=== PATIENT | female | born 1985 | race Caucasian/White ===

== ENCOUNTER 2019-09-03 18:58 | Emergency (ER) | payer BC, SELFPAY ==
[2019-09-03 19:14] VITALS: BP 136/96; PULSE 97; RESP 18; TEMP 36.7; O2SAT 100
[2019-09-03 20:45] LABS: Add Urine Microscopic? NO; Appearance Urine Clear (Clear); Bilirubin Urine Negative (Negative); Blood Urine Negative (Negative); Color Urine Yellow (Yellow); Glucose Urine UA Negative (Negative); Ketones Urine Negative (Negative); Leukocyte Esterase Ur Negative LEU/UL (Negative); Nitrate Urine Negative (Negative); Protein Urine Negative (Negative); Specific Grav Ur 1.018 (1.001-1.035); Urobilinogen Urine Negative mg/dL (<2.0)
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
[2019-09-03] MEDS: CLINDAMYCIN HCL 150 MG CAP 300 MG PO (21:37)
== END 2019-09-03 21:40 | disposition home or self-care (01) ==
PROVIDERS: Emergency Provider Emergency Medicine; PCP Emergency Medicine
DX: J02.9 Acute pharyngitis, unspecified (principal); N76.0 Acute vaginitis; F17.210 Nicotine dependence, cigarettes, uncomplicated
CPT/HCPCS: 81003; 81025; 87070; 87077; 87081; 87491; 87591; 87808; 87880; 99284; A9270

== ENCOUNTER 2020-04-11 13:47 | Outpatient (CLI) | payer BC, SELFPAY ==
--- NOTE | 2020-04-11 13:48 | ECG_ITS ---
Measurements Intervals Walker Rate: 89 P: 62 OH: 177 QRS: -9 QRSD: 92 T: 19 QT: 347 QTc: 422 Interpretive Statements SINUS RHYTHM POOR R WAVE PROGRESSION, ANTERIOR LEADS BASELINE ARTIFACT- I, III, AVR, AVL, AVF BORDERLINE ECG Electronically Signed On 04-11-2020 14:24:13 CDT by Chavo Burns D.O.
== END 2020-04-11 13:48 | disposition home or self-care (01) ==
LOC: ANHSURGERY 13:48
PROVIDERS: PCP Emergency Medicine; Visit Provider Obstetrics & Gynecology
DX: Z01.810 Encounter for preprocedural cardiovascular examination (principal); Z72.0 Tobacco use
CPT/HCPCS: 93005

== ENCOUNTER 2020-04-15 09:52 | Emergency (ER) | payer BC, SELFPAY ==
[2020-04-15 10:00] VITALS: BP 119/83; PULSE 83; RESP 16; TEMP 36.4; O2SAT 99
[2020-04-15 10:05] VITALS: BP 119/83; PULSE 83; RESP 16; TEMP 36.4; O2SAT 99
--- NOTE | 2020-04-15 10:09 | ED.EXTPRO ---
HPI - Extremity Problem General Chief complaint: Extremity Injury, Upper Stated complaint: left shoulder pain Time Seen by Provider: 04/15/20 10:10 Source: patient and RN notes reviewed Mode of arrival: ambulatory Limitations: no limitations History of Present Illness HPI Narrative: 35-year-old female presents with concern for left posterior shoulder pain. Reports symptoms started yesterday. Reports the day before that she was putting in a wooden fence and lifting heavy items. She denies any direct trauma, injury. Denies neck pain, arm pain, chest pain. Denies abdominal pain, nausea, vomiting. Reports using ibuprofen and heat. MD Complaint: other (shoulder pain) Related Data Allergies Allergy/AdvReac Type Severity Reaction Status Date / Time metronidazole [From Metrogel] Allergy Mild REDNESS, Verified 04/15/20 10:05 IRRITATION Review of Systems Review of Systems: Narrative: CONSTITUTIONAL: Denies malaise, chills, sweats, or fever. CARDIOVASCULAR: Denies chest pain, palpitations RESPIRATORY: Denies cough or dyspnea. GASTROINTESTINAL: Denies abdominal pain, nausea, vomiting SKIN: Denies bruising, redness MUSCULOSKELETAL: Reports left posterior shoulder pain NEUROLOGIC: Denies numbness, weakness All systems reviewed & are unremarkable except as noted in HPI and below PMFSH Past Medical History Medical History (Updated 04/15/20 @ 10:23 by Bronwyn Rosas NP) Chlamydia Hemorrhoids Ovarian cyst Spontaneous Surgical History Surgical History (Updated 06/14/19 @ 22:04 by Kortney Moreira) H/O dilation and curettage x2 H/O laparoscopy Hx of section Social History Social History Smoking packs per day: 1 Smoking cigarettes per day: 20.0 Years smoked: 20 Smoking pack-years: 20.00 Smoking status: Current every day smoker Tobacco type: cigarettes Second hand tobacco smoke exposure: Yes Alcohol intake: never Gender identity (if verbalized by the patient): Female Spiritual care concerns: No Comments At time of signature, agree with nursing past medical, surgical, social and family history. There is no relevant family history pertinent to the presenting complaint Exam Narrative: Exam Narrative: GENERAL: Well-appearing, well-nourished, and in no acute distress. HEAD: Normocephalic, atraumatic. EYES: PERRLA, conjunctivae clear ENT: Mucous membranes moist. NECK: Supple. CHEST: No respiratory distress. Clear to auscultation. No bony deformities, no asymmetry. Speaks in full sentences. HEART: Regular rate and rhythm. No murmur heard. EXTREMITIES: Bilateral upper extremities have grossly normal range of motion, grossly normal strength and sensation. SKIN: Warm, dry, no rash. No erythema, edema noted NEURO: Alert and oriented x3. PSYCH: Normal mood and affect Course Course Emergency Course: Patient is aware of diagnosis, understands and agrees to treatment plan. Anticipatory guidance given. Patient agrees to follow-up as directed and is aware of reasons to seek care at the emergency department. Portions of this record may have been created with voice recognition software Vital Signs Vital signs: Vital Signs Temperature 97.6 F 04/15/20 10:00 Pulse Rate 83 04/15/20 10:00 Respiratory Rate 16 04/15/20 10:00 Blood Pressure 119/83 04/15/20 10:00 Pulse Oximetry 99 04/15/20 10:00 Temperature 97.6 F 04/15/20 10:05 Pulse Rate 83 04/15/20 10:05 Respiratory Rate 16 04/15/20 10:05 Blood Pressure 119/83 04/15/20 10:05 Pulse Oximetry 99 04/15/20 10:05 Reviewed. MDM - Extremity (Nontraumatic) MDM Narrative Medical decision making narrative: Patients pain is consistent with musculoskeletal etiology. No signs of neurological or vascular compromise on exam. Compartments and tissues are soft without signs of compartment syndrome. Pain is felt appropriate for further evaluation on an outpatient
== END 2020-04-15 10:30 | disposition home or self-care (01) ==
PROVIDERS: Emergency Provider Nurse Practitioner; PCP Emergency Medicine
DX: S46.912A Strain of unspecified muscle, fascia and tendon at shoulder and upper arm level, left arm, initial encounter (principal); X50.0XXA Overexertion from strenuous movement or load, initial encounter; F17.210 Nicotine dependence, cigarettes, uncomplicated
CPT/HCPCS: 99213; G0463

== ENCOUNTER 2020-04-22 01:28 | Outpatient (CLI) | payer BC, SELFPAY ==
[2020-04-22 17:41] LABS: SARS-CoV-2 RNA PCR Negative
== END 2020-04-22 01:29 | disposition home or self-care (01) ==
LOC: ANHCOVIDDT 01:28
PROVIDERS: PCP Emergency Medicine; Visit Provider Obstetrics & Gynecology
DX: Z01.812 Encounter for preprocedural laboratory examination (principal); Z20.828 Contact with and (suspected) exposure to other viral communicable diseases
CPT/HCPCS: 87635; C9803; U0003

== ENCOUNTER 2020-04-24 03:07 | Day surgery (SDC) | payer BC, SELFPAY ==
[2020-04-10 15:39] VITALS: BMI 34.0
[2020-04-24] VITALS (9 sets, daily range): BP systolic 103–136; BP diastolic 70–85; PULSE 64–99; RESP 12–18; TEMP 36.1–36.4; O2SAT 96–100; BMI 33.9
--- NOTE | 2020-04-24 08:57 | PM.IMHP ---
H&P: HPI History of Present Illness Date/Time: 04/24/20 08:57 Chief complaint: desires sterilization and heavy bleeding Narrative: 35 y/o who desires permanent contraception. Also she has monthly menses lasting 6-7 days each with heavy flow. She is interested in surgical management of her problem. Review of Systems Review of Systems: All systems reviewed & are unremarkable except as noted in HPI and below PMFSH Past Medical History Medical History (Updated 04/24/20 @ 09:00 by Larry Zaman MD) Chlamydia Hemorrhoids Ovarian cyst Spontaneous Surgical History Surgical History H/O dilation and curettage x2 H/O laparoscopy Hx of section Social History Social History Smoking packs per day: 1 Smoking cigarettes per day: 20.0 Years smoked: 20 Smoking pack-years: 20.00 Smoking status: Current every day smoker Tobacco type: cigarettes Second hand tobacco smoke exposure: Yes Alcohol intake: never Gender identity (if verbalized by the patient): Female Spiritual care concerns: No Meds Home Medications and Allergies Home Medications Medication Instructions Recorded Confirmed Type cyclobenzaprine 10 mg PO TID PRN #20 tablet 04/15/20 Rx ibuprofen 800 mg PO Q6H PRN #30 tablet 04/15/20 Rx Allergies Allergy/AdvReac Type Severity Reaction Status Date / Time metronidazole [From Metrogel] Allergy Mild REDNESS, Verified 04/15/20 10:05 IRRITATION Exam Const: Orientation/consciousness: patient oriented x3 Other: Well-developed, well-nourished female in no acute distress. Neck: Thyroid: thyroid normal Lymphatic: no lymphadenopathy noted (in neck, axilla or inguinal nodes) Resp: Effort & Inspection: normal respiratory effort Auscultation: clear to auscultation bilaterally Cardio: Rate: regular rate Rhythm: regular rhythm Heart sounds: S1 normal heart sound present and S2 normal heart sound present GI: Other: ABD: Soft, nontender, nondistended. No guarding or rebound tenderness. No hepatosplenomegaly. : General: Yes no CVA tenderness Other: External genitalia: normal female hair distribution, without lesion. Urethral meatus: no lesion, non prolapsed. Bladder: no mass, nontender Vagina: well-estrogenized, without lesion or discharge. No cystocele or rectocele. Cervix: no lesion or discharge. Uterus: small, anteverted, freely mobile, nontender Adnexa: no mass or tenderness. Anus/perineum: no lesions, nontender Back/Spine/Pelvis: Back: no CVA tenderness Skin: General skin exam: normal color and no rashes or lesions noted Neuro: General: patient oriented x3 Extrem: Other: Extremities: nontender with no edema Psych: Mental Status: mental status grossly normal Affect: normal affect Assessment and Plan Assessment and plan (1) Menometrorrhagia: Code(s): N92.1 - Excessive and frequent menstruation with irregular cycle Status: Acute Assessment and Plan: We have reviewed medical management options as well as surgical options. She would like laparoscopic bilateral tubal ligation with hysteroscopy, D&C, endometrial ablation. She understands there are temporary methods of contraception available to her. She understands that there are nonsurgical options as well as surgical options. She understands that tubal ligation will render her permanently sterile. She understands that there is a failure rate associated with tubal ligation, as well as an inherent ectopic gestation risk. Furthermore, she understands risks of surgery to include risks of anesthesia, risks of pain, infection, bleeding, blood products, thromboembolic phenomena and damage to adjacent structures such as bowel, bladder, ureters, blood vessels and nerves. She understands all these risks and elects to proceed with surgery. She has received the ACOG pamphlet on
[2020-04-24] MEDS: ACETAMINOPHEN 500 MG TABLET 1000 MG PO (11:34)
[2020-04-24] MEDS: KETOROLAC 15 MG/ML VIAL (*BKC) IV PUSH (11:42)
[2020-04-24] MEDS: LACTATED RINGERS 1,000 ML 30 ML IV CONT ×2 (11:42→13:57)
--- NOTE | 2020-04-24 12:09 | WPDHPUPDATE1 ---
History and Physical Update Update Date/Time: 04/24/20 12:09 History and Physical has been reviewed, including an updated exam of the patient. There are NO changes in the patient's condition. Risks, benefits, and alternatives have been discussed and questions answered. Patient agrees to proceed with procedure.
--- NOTE | 2020-04-24 12:30 | WPDANESEPPF ---
Anes - Initial Pre Proc Eval Procedure: Operation Date: 04/24/20 12:45 Proposed Procedures p Laparoscopic Bilateral Tubal Ligation With Fallopian Rings - Larry Zaman MD s Hysteroscopy, Dilation And Curettage, Novasure Endometrial Ablation - Larry Zaman MD Date/Time: 04/24/20 12:30 Surgeon: Larry Zaman MD Pre Op Diagnosis: desires sterilization and heavy bleeding Patient Data Age: 35 Gender: F Height: 5 ft 4 in Weight: 89.6 kg Last Vital Signs Temp 36.1 C L 04/24/20 11:30 Pulse 99 04/24/20 11:30 Resp 18 04/24/20 11:30 BP 127/76 04/24/20 11:30 Pulse Ox 100 04/24/20 11:30 Allergies Allergy/AdvReac Type Severity Reaction Status Date / Time metronidazole [From Metrogel] Allergy Mild REDNESS, Verified 04/24/20 11:25 IRRITATION Home Medications Medication Instructions Recorded Confirmed Type cyclobenzaprine 10 mg PO TID PRN #20 tablet 04/15/20 04/24/20 Rx ibuprofen 800 mg PO Q6H PRN #30 tablet 04/15/20 04/24/20 Rx Patient hx anesthesia problems: none Family hx anesthesia problems: none PMFSH Past Medical History Medical History Chlamydia Hemorrhoids Ovarian cyst Spontaneous Surgical History Surgical History H/O dilation and curettage x2 H/O laparoscopy Hx of section Social History Social History Smoking packs per day: 1 Smoking cigarettes per day: 20.0 Years smoked: 20 Smoking pack-years: 20.00 Smoking status: Current every day smoker Tobacco type: cigarettes Second hand tobacco smoke exposure: Yes Alcohol intake: never Gender identity (if verbalized by the patient): Female Spiritual care concerns: No Anes - Eval Final PreProcedure Day of Procedure 04/24/20 12:30 Patient weight: obese Heart: regular rate and rhythm Lungs: clear to auscultation Airway: Mallampati scale class II Neurological: alert and oriented Last oral intake: >/= 8 hours ASA classification: II Emergent: no Anesthetic plan: proceed Anesthesia type and monitoring: general ETT and standard monitoring Informed Consent: The patient's anesthetic plan and its attendant risks and benefits were discussed with the patient/family/POA. Questions were solicited and answers provided to the satisfaction of the patient/family/POA.
--- NOTE | 2020-04-24 13:44 | SUR.OPER ---
6 ML 1% LIDOCAINE INJECTED INTO FALLOPIAN TUBES BILATERALLY 10 ML 1% LIDOCAINE INJECTED INTO CERVIX
--- NOTE | 2020-04-24 13:59 | PM.PROC ---
Procedure Note - Detailed Date of procedure: 04/24/20 Pre-op diagnosis: desires sterilization and heavy bleeding Post-op diagnosis: same Procedure performed: Laparoscopic bilateral tubal ligation with Falope rings Hysteroscopy Dilation and sharp curettage Endometrial ablation Description of procedure: The patient was taken to the operating room where general endotracheal anesthesia was administered. She was prepared and draped in the usual sterile fashion in dorsal lithotomy position. The bladder was drained with a red rubber catheter. A sterile speculum was placed into the vagina. The anterior lip of the cervix was grasped with a single-tooth tenaculum. The acorn uterine manipulator was placed. The speculum was withdrawn. Gloves were changed and attention was turned the abdomen. An infraumbilical skin incision was made with a scalpel. The abdomen was tented and a 5mm bladeless trocar was advanced under direct laparoscopic visualization. Pneumoperitoneum was administered using carbon dioxide gas. A survey of the pelvis and abdomen revealed the findings noted above. A second skin incision was made in the midline above the symphysis pubis and an 8mm bladeless trocar was advanced under direct laparoscopic visualization. The fallopian tube on the right side was followed out to the fimbriated end for identification. It was then grasped in the midportion with the Falope ring applicator. The Falope ring was tented applied. A good loop of tube was noted to be distal to the ring. Hemostasis was excellent. The device was reloaded and the contralateral tube was similarly identified and ligated. An excellent application was noted here as well. A total of 1mL of 1% lidocaine was infiltrated into the serosa of the proximal tubes for postoperative anesthesia. The ports were withdrawn. The gas was allowed to escape. The skin incisions were reapproximated using interrupted subcuticular sutures of 4 0 Vicryl. Dermaflex was applied externally. Attention was redirected to the vagina. The acorn manipulator was withdrawn and the speculum reintroduced. The anterior lip of the cervix was grasped with single-tooth tenaculum. Ten mL of 1% lidocaine was administered in a paracervical block. The cervix was then gently dilated using Hegar dilators until an 8 mm dilator could be passed. Hysteroscopy was performed using sterile saline as a distention medium. Findings are as noted above. Sharp curettage was then performed, and endometrial curettings were collected on a Telfa pad and passed off to be sent to pathology. Finally, the the Codi device was advanced and endometrial ablation commenced without difficulty. The device was withdrawn and a second look was taken using the hysteroscope. Excellent coverage of the endometrial cavity was noted. The tenaculum was removed. Hemostasis was excellent. Sponge, lap, needle and instrument counts were correct. The patient was awakened and taken to the recovery room in stable condition. I was present and scrubbed through the entire procedure. Implants: Falope rings Anesthesia: GETA and local (1% lidocaine) Surgeon: Larry Zaman MD Estimated blood loss (mL): 5 Drains: No Packing: No Pathology: yes (endometrial curettings) Complications: None Condition: stable Disposition: PACU Findings: Normal appearing right upper quadrant anatomy, vermiform appendix, uterus, tubes, ovaries, anterior and posterior cul de sac, round ligaments bilaterally and uterosacral ligaments bilaterally. Endometrial cavity unremarkable. Both tubal ostia seen. The uterus sounded to a depth of 8.5 cm with a cervical length of 3 cm, giving a subtracted uterine cavity length of 5.5 cm.
[2020-04-24] MEDS: fentaNYL CITRATE INJ (*CRX) 100 MCG/2 ML VIAL 25 MCG IV PUSH ×8 (14:05→14:40)
[2020-04-24] MEDS: ONDANSETRON INJ 4 MG/2 ML VIAL IV PUSH (14:21)
[2020-04-24] MEDS: HYDROmorphone HCL INJ (*CRX) 1 MG/ML SYR 0.5 MG IV PUSH ×2 (14:43→14:58)
[2020-04-24] MEDS: oxyCODONE HCL (*CRX) 5 MG TAB IR PO (15:36)
== END 2020-04-24 16:03 | disposition home or self-care (01) ==
PROVIDERS: PCP Emergency Medicine; Visit Provider Obstetrics & Gynecology
PROC: (CPT 58671; principal; 2020-04-24 12:45)
PROC: 0U5B8ZZ Destruction of Endometrium, Via Natural or Artificial Opening Endoscopic (ICD-10-PCS; CPT 58563; 2020-04-24 12:45)
DX: Z30.2 Encounter for sterilization (principal); N92.1 Excessive and frequent menstruation with irregular cycle; F17.210 Nicotine dependence, cigarettes, uncomplicated; E66.9 Obesity, unspecified; Z68.33 Body mass index [BMI] 33.0-33.9, adult
CPT/HCPCS: 58563; 58671; 88305; A4264; A9270; J0330; J1100; J1170; J1885; J2250; J2405; J2704; J3010; J7030; J7120

== ENCOUNTER 2020-11-26 15:45 | Emergency (ER) | payer BC, SELFPAY ==
--- NOTE | ~2020-11-26 | CT_ITS ---
EXAMINATION: CT abdomen pelvis w con DATE: 11/26/2020 18:15 INDICATION: Right lower quadrant pain. Nausea and vomiting. TECHNIQUE: Computed tomography (CT) of the abdomen and pelvis was performed with 100 cc Omnipaque 350 intravenous contrast. The dose-length product was 965.34 mGy-cm. Automated exposure control and iter ative reconstruction technique were employed. COMPARISON: CT dated 06/14/2019. FINDINGS: Heart size is normal. No significant pleural or pericardial effusion. No significant vascul ar abnormality. No significant vascular abnormality. No lymphadenopathy. Fatty infiltration of the liver. The spleen, pancreas, adrenal glands are unremarkable. Gallbladder i s present. There are bilateral renal cysts. Normal appendix. No mesenteric lymphadenopathy. Nonobstru ctive bowel gas pattern. Small fat-containing umbilical hernia. No abnormal pelvic masses or fluid co llections. There are surgical changes consistent with previous tubal ligation. No significant bone or joint abnormality. IMPRESSION: 1. No acute abdominal abnormality. Reviewed, dictated and finalized at location A.
--- NOTE | ~2020-11-26 | US_ITS ---
EXAMINATION: US pelvic complete w TV DATE: 11/26/2020 19:58 INDICATION: Right pelvic pain Comparison:No prior studies for comparison. TECHNIQUE: Multiple transabdominal and endovaginal sonographic images of the pelvis performed. FINDINGS: The uterus measures 8.9 x 4.1 x 4.5 cm. The endometrial is heterogeneous. Endometrium is so mewhat heterogeneous with possible 1.3 cm endometrial mass. There are cysts in the lower uterine segm ent measuring up to 9 mm. The right ovary measures 3.4 x 2.9 x 2 cm and the left ovary measures 3.5 x 1.9 x 2.5 cm. There are small follicles in each ovary. Normal doppler signal in both ovaries. There is no free fluid in the pelvis. There are no abnormal masses seen on either side. IMPRESSION: 1. Thickened heterogeneous endometrium containing 1.3 cm mass which may represent an endometrial poly p, submucosal fibroid or less likely malignancy. Reviewed, dictated and finalized at location [facility]. IMPRESSION: 1. Thickened heterogeneous endometrium containing 1.3 cm mass which may represe nt an endometrial polyp, submucosal fibroid or less likely malignancy.
[2020-11-26 16:35] VITALS: BP 162/110; PULSE 90; RESP 22; TEMP 36.8; O2SAT 100
--- NOTE | 2020-11-26 16:37 | ED.NAVMDI ---
HPI - Nausea/Vomiting/Diarrhea General Chief complaint: Nausea/Vomiting/Diarrhea Stated complaint: R Lower Abd Pain Time Seen by Provider: 11/26/20 16:16 Source: patient Mode of arrival: ambulatory Limitations: no limitations History of Present Illness HPI Narrative: Patient is a 35 year old female who presents with complaints of lower abdominal pain x 4 days. She reports that initially RLQ pain which has increased over the past few days. She reports pain is 8/10 and now includes all of lower abdomen. She reports nausea starting today with vomiting x 1. She reports history of kidney stone and ovarian cyst but states it feels much different this time . She reports taking [place] yesterday without relief. She denies urinary complaints. She denies diarrhea, reports feeling of constipation. She denies all other complaints at this time. MD elicited complaint: nausea, vomiting and abdominal pain Related Data Allergies Allergy/AdvReac Type Severity Reaction Status Date / Time metronidazole [From Metrogel] Allergy Mild REDNESS, Verified 04/24/20 11:25 IRRITATION Review of Systems Review of Systems: Narrative: CONSTITUTIONAL: Denies fever, chills, or sweats. EYES: Denies visual changes, redness, or discharge. ENT: Denies rhinorrhea, congestion, sore throat, or otalgia. CARDIOVASCULAR: Denies chest pain, palpitations, or edema. RESPIRATORY: Denies cough or dyspnea. GASTROINTESTINAL: Reports lower abdominal pain, nausea and vomiting. GENITOURINARY: Denies dysuria or hematuria. SKIN: Denies rash or itching. MUSCULOSKELETAL: Denies back pain, joint pain, or myalgia. NEUROLOGIC: Denies headache, numbness, dizziness, or weakness. PSYCHIATRIC: Denies anxiety or depression. [facility], [facility] Past Medical History Medical History (Updated 11/26/20 @ 20:21 by ANUJ Pizano) Chlamydia Hemorrhoids Kidney stone Ovarian cyst Spontaneous Surgical History Surgical History (Updated 11/26/20 @ 16:41 by ANUJ Pizano) H/O dilation and curettage x2 H/O laparoscopy History of endometrial ablation Hx of section Social History Social History Smoking packs per day: 1 Smoking cigarettes per day: 20.0 Years smoked: 20 Smoking pack-years: 20.00 Smoking status: Current every day smoker Tobacco type: cigarettes Second hand tobacco smoke exposure: Yes Alcohol intake: never Gender identity (if verbalized by the patient): Female Spiritual care concerns: No Comments At the time of signature, I have reviewed and agree with nursing past medical, surgical, social, and family history unless otherwise noted. Please see nursing chart for further information. There is no relevant family history pertinent to the presenting complaint. Exam Narrative: Exam Narrative: GENERAL: Well-appearing, well-nourished, and in no acute distress. HEAD: Normocephalic, atraumatic. EYES: EOMI. No redness or drainage. Conjunctiva are normal. ENT: Mucous membranes pink and moist. CHEST: No respiratory distress. Clear to auscultation. HEART: Regular rate and rhythm. No murmur appreciated. Normal peripheral pulses. GI: Soft, tenderness with palpation, no rebound tenderness or guarding. No distention. Bowel sounds normal in all quadrants. MUSCULOSKELETAL: No bony tenderness. EXTREMITIES: Normal range of motion. No edema. SKIN: Warm, dry, no rash. NEURO: No focal deficits. Alert and oriented x3. Gait steady. PSYCH: Normal affect. No signs of depression or anxiety. Course Vital Signs Vital signs: Vital Signs Temperature 36.8 C 11/26/20 16:35 Pulse Rate 90 11/26/20 16:35 Respiratory Rate 22 H 11/26/20 16:35 Blood Pressure 162/110 H 11/26/20 16:35 Pulse Oximetry 100 11/26/20 16:35 Temperature 36.8 C 11/26/20 16:35 Pulse Rate 83 11/26/20 18:36 Respiratory Rate 17 11/26/20 18:36 Blood Pressure 117/69 11/26/20 18:36 Pulse Oximetry 99
[2020-11-26] MEDS: MORPHINE SULFATE (*CRX) 4 MG/ML INJ IV PUSH (17:04)
[2020-11-26] MEDS: SODIUM CHLORIDE 0.9% IV 1,000 ML 999 ML IV CONT (17:04)
[2020-11-26] MEDS: ONDANSETRON INJ 4 MG/2 ML VIAL IV PUSH ×2 (17:04→19:20)
[2020-11-26 17:16] LABS: Basophils Absolute Auto 0.1 K/mm3 (0.0-0.1); Basophils Percent Auto 0.9 % (0.2-1.2); Eosinophils Absolute Auto 0.4 K/mm3 (0-0.3); Eosinophils Percent Auto 3.1 % (0-4.4); Hemoglobin 15.6 g/dL (12.0-15.0); Immature Granulocyte Absolute 0.06 K/mm3 (0.00-0.031); Immature Granulocyte Percent A 0.5 % (0-0.5); Lymphocytes Absolute Auto 3.17 K/mm3 (0.9-3.2); Lymphocytes Percent Auto 26.7 % (18.3-44.2); Mean Corpuscular HGB Conc 33.9 g/dl (32-36); Mean Corpuscular Hemoglobin 30.6 pg (26-34); Mean Corpuscular Volume 90.2 fl (80-100); Mean Platelet Volume 9.4 fl (7.4-10.4); Monocytes Absolute Auto 0.7 K/mm3 (0.1-0.6); Monocytes Percent Auto 5.9 % (2.6-8.5); Neutrophils Absolute Auto 7.5 K/mm3 (1.3-6.7); Neutrophils Percent Auto 62.9 % (45.5-73.1); Platelet Count Result 390 k/mm3 (150-375); Red Cell Distribution Width 12.1 % (11.5-14.5); White Blood Count 11.9 K/mm3 (4.5-10.0)
[2020-11-26 17:35] LABS: Add Urine Microscopic? NO; Appearance Urine Clear (Clear); Bilirubin Urine Negative (Negative); Blood Urine Negative (Negative); Color Urine Yellow (Yellow); Glucose Urine UA Negative (Negative); Ketones Urine Negative (Negative); Leukocyte Esterase Ur Negative LEU/UL (Negative); Nitrate Urine Negative (Negative); Protein Urine Negative (Negative); Specific Grav Ur 1.027 (1.001-1.035); Urobilinogen Urine Negative mg/dL (<2.0)
[2020-11-26 17:50] LABS: Alanine Aminotransferase 32 U/L (4-35); Albumin Level 4.6 g/dL (3.5-5.1); Alkaline Phosphatase 105 U/L (38-126); Anion Gap 9 mmol/L (8-16); Aspartate Amino Transferase 34 U/L (14-36); Bilirubin,Total 0.5 mg/dL (0.2-1.3); Blood Urea Nitrogen 16 mg/dL (7-17); Calcium 9.3 mg/dL (8.4-10.2); Carbon Dioxide 26 mmol/L (22-30); Chloride 106 mmol/L (98-107); Estimated Glomerular Filt Rate > 60; Glucose 98 mg/dL (65-105); Lipase 37 U/L (23-300); Potassium 4.2 mmol/L (3.4-5.0); Sodium 141 mmol/L (137-145)
--- NOTE | 2020-11-26 18:00 | PC.NURSE ---
Pt ambulated steady gait to BR, states nausea has improved and no longer vomiting, reports 3/10 lower abd pain
[2020-11-26 18:36] VITALS: BP 117/69; PULSE 83; RESP 17; O2SAT 99
[2020-11-26] MEDS: KETOROLAC 30 MG/ML VIAL (*BKC) IV PUSH (19:24)
[2020-11-26] MEDS: FAMOTIDINE 20 MG/2 ML VIAL IV PUSH (19:26)
--- NOTE | 2020-11-26 19:30 | PC.NURSE ---
Pt to ultrasound at this time.
== END 2020-11-26 20:39 | disposition home or self-care (01) ==
PROVIDERS: Emergency Provider Nurse Practitioner; PCP Emergency Medicine
DX: R10.31 Right lower quadrant pain (principal); R10.32 Left lower quadrant pain; Z87.442 Personal history of urinary calculi; F17.210 Nicotine dependence, cigarettes, uncomplicated
CPT/HCPCS: 36415; 74177; 76830; 76856; 80053; 81003; 81025; 83690; 85025; 96361; 96374; 96375; 96376; 99284; J1885; J2270; J2405; J7030; Q9967

== ENCOUNTER 2021-02-07 11:28 | Emergency (ER) | payer BC, SELFPAY ==
[2021-02-07 11:48] VITALS: BP 116/82; PULSE 87; RESP 20; TEMP 36.7; O2SAT 100
--- NOTE | 2021-02-07 12:21 | ED.URI ---
HPI - URI/Sore Throat General Chief Complaint: Upper Respiratory Infection Stated Complaint: headache/nausea/cough Time Seen by Provider: 02/07/21 11:56 Source: patient and RN notes reviewed Mode of arrival: ambulatory Limitations: no limitations History of Present Illness HPI Narrative: Patient presents today with a 2-day history of fatigue, cough, nausea, and fever up to 100. She has been taking Tylenol and ibuprofen without much relief. She is requesting a COVID-19 rapid test today. MD elicited complaint: cough Related Data Home Medications Medication Instructions Recorded Confirmed No Home Medications 02/07/21 02/07/21 Allergies Allergy/AdvReac Type Severity Reaction Status Date / Time metronidazole [From Metrogel] Allergy Mild REDNESS, Verified 04/24/20 11:25 IRRITATION Review of Systems Review of Systems: CONSTITUTIONAL: Denies body aches, chills, or sweats.+ Fever, fatigue EYES: Denies visual changes, redness, or discharge. ENT: Denies rhinorrhea, congestion, sore throat, or otalgia. CARDIOVASCULAR: Denies chest pain, palpitations, or edema. RESPIRATORY: Denies dyspnea.+ Cough GASTROINTESTINAL: Denies abdominal pain, vomiting, or diarrhea.+ Nausea GENITOURINARY: Denies dysuria or hematuria. SKIN: Denies rash, itching, or wounds. MUSCULOSKELETAL: Denies back pain, joint pain, or myalgia. NEUROLOGIC: Denies headache, numbness, tingling, or weakness. PSYCH: Denies depression or anxiety. [facility] Past Medical History Medical History Chlamydia Hemorrhoids Kidney stone Ovarian cyst Spontaneous Surgical History Surgical History H/O dilation and curettage x2 H/O laparoscopy History of endometrial ablation Hx of section Social History Social History Smoking packs per day: 1 Smoking cigarettes per day: 20.0 Years smoked: 20 Smoking pack-years: 20.00 Smoking status: Current every day smoker Tobacco type: cigarettes Second hand tobacco smoke exposure: Yes Alcohol intake: never Gender identity (if verbalized by the patient): Female Spiritual care concerns: No Comments At time of signature, I have reviewed and agree with nursing past medical, surgical, social and family history unless otherwise noted. Please see nursing chart for further information. There is no relevant family history pertinent to the presenting complaint Exam Narrative: GENERAL: Well-appearing, well-nourished, and in no acute distress. HEAD: Normocephalic, atraumatic. EYES: EOMI. No redness or drainage. Conjunctivae normal. ENT: Mucous membranes pink and moist. Nares clear. No rhinorrhea. TMs normal bilaterally. Throat mildly erythematous. Uvula midline. NECK: Normal AROM. Supple. No lymphadenopathy. CHEST: No respiratory distress. Clear to auscultation. HEART: Regular rate and rhythm. No murmur appreciated. Normal peripheral pulses. EXTREMITIES: Normal range of motion. No edema. SKIN: Warm, dry, no rash. Capillary refill normal. Normal skin turgor. NEURO: No focal deficits. Alert and oriented x3. Gait steady. PSYCH: Normal affect. No signs of depression or anxiety. Course Course Emergency Course: Patient declined a PCR test. Vital Signs Vital signs: Vital Signs Temperature 98.0 F 02/07/21 11:48 Pulse Rate 87 02/07/21 11:48 Respiratory Rate 20 02/07/21 11:48 Blood Pressure 116/82 02/07/21 11:48 Pulse Oximetry 100 02/07/21 11:48 Temperature 98.0 F 02/07/21 11:48 Pulse Rate 87 02/07/21 11:48 Respiratory Rate 20 02/07/21 11:48 Blood Pressure 116/82 02/07/21 11:48 Pulse Oximetry 100 02/07/21 11:48 Reviewed. Pt has been instructed to follow up with her PCP regarding her elevated blood pressure today. MDM - URI/Sore Throat Differential Diagnosis Differentia
== END 2021-02-07 12:34 | disposition home or self-care (01) ==
PROVIDERS: Emergency Provider Nurse Practitioner; PCP Emergency Medicine
DX: B34.9 Viral infection, unspecified (principal); Z20.822 Contact with and (suspected) exposure to COVID-19; F17.210 Nicotine dependence, cigarettes, uncomplicated
CPT/HCPCS: 87426; 99213; C9803; G0463

== ENCOUNTER 2021-04-04 14:25 | Emergency (ER) | payer BC, SELFPAY ==
--- NOTE | ~2021-04-04 | CT_ITS ---
EXAMINATION: CT abdomen pelvis wo con DATE: 04/04/2021 17:29 INDICATION: Right-sided abdominal pain TECHNIQUE: Computed tomography (CT) of the abdomen and pelvis was performed without intravenous contr ast. Automated exposure control and iterative reconstruction technique were employed. Exam dose: 361 .20 mGy-cm total exam DLP. COMPARISON: 11/26/2020 CT abdomen pelvis with IV contrast material FINDINGS: The lung bases are clear of infiltrate or consolidation. Heart size is within normal limits . No pericardial or pleural effusion. Small sliding hiatal hernia. The liver, gallbladder, bile duct, spleen, pancreas and pancreatic duct and adrenal glands are unrema rkable. Occasional bilateral renal cysts measuring up to 2.4 cm on the, approximately 11 mm on the right. No renal calculus is evident but there is suggestion of a subtle approximately 2.8 mm calculus of the right ureterovesical junction with mild right hydroureteronephrosis and some periureteral fluid. The urinary bladder is otherwise unremarkable. Normal caliber of the left ureter. The uterus and adnexal areas are unremarkable. Status post bilateral tubal ligation. Normal appendix. No bowel obstruction or intraperitoneal free air. Small fat-containing umbilical hernia. The skeletal structures are unremarkable. IMPRESSION: Approximately 3 mm right obstructing ureterovesical junction calculus with mild right hyd roureteronephrosis and right periureteral fluid Bilateral renal cysts Small sliding hiatal hernia Normal appendix Reviewed, dictated and finalized at [facility]. Reviewed, dictated and finalized at location [facility]. IMPRESSION: Approximately 3 mm right obstructing ureterovesical junction calcul us with mild right hydroureteronephrosis and right periureteral fluid Bilateral renal cysts Small sliding hiatal hernia Normal appendix
[2021-04-04 14:44] VITALS: BP 139/92; PULSE 66; RESP 14; TEMP 36.8; O2SAT 100
[2021-04-04 15:15] LABS: Basophils Absolute Auto 0.1 K/mm3 (0.0-0.1); Basophils Percent Auto 0.8 % (0.2-1.2); Eosinophils Absolute Auto 0.2 K/mm3 (0-0.3); Eosinophils Percent Auto 1.1 % (0-4.4); Hematocrit 44.5 % (37.0-47.0); Hemoglobin 15.4 g/dL (12.0-15.0); Immature Granulocyte Absolute 0.07 K/mm3 (0.00-0.031); Immature Granulocyte Percent A 0.5 % (0-0.5); Lymphocytes Absolute Auto 2.79 K/mm3 (0.9-3.2); Lymphocytes Percent Auto 19.9 % (18.3-44.2); Mean Corpuscular HGB Conc 34.6 g/dl (32-36); Mean Corpuscular Hemoglobin 31.2 pg (26-34); Mean Corpuscular Volume 90.1 fl (80-100); Mean Platelet Volume 9.5 fl (7.4-10.4); Monocytes Absolute Auto 0.7 K/mm3 (0.1-0.6); Monocytes Percent Auto 4.9 % (2.6-8.5); Neutrophils Absolute Auto 10.2 K/mm3 (1.3-6.7); Neutrophils Percent Auto 72.8 % (45.5-73.1); Platelet Count Result 392 k/mm3 (150-375); Red Blood Count 4.94 M/mm3 (4.2-5.4); Red Cell Distribution Width 12.3 % (11.5-14.5); White Blood Count 14.1 K/mm3 (4.5-10.0)
[2021-04-04 15:22] LABS: Add Urine Microscopic? YES; Appearance Urine Turbid (Clear); Bilirubin Urine Negative (Negative); Blood Urine 3+ (Negative); Calcium Oxalate Crystals Urine Present /hpf; Color Urine Amber (Yellow); Glucose Urine UA Negative (Negative); Ketones Urine Negative (Negative); Leukocyte Esterase Ur 1+ LEU/UL (Negative); Mucus Urine Rare /lpf; Nitrate Urine Negative (Negative); Protein Urine 2+ mg/dL (Negative); Specific Grav Ur 1.025 (1.001-1.035); Squamous Epithelial Cell Urine Many /hpf (Few); Urobilinogen Urine Negative mg/dL (<2.0); WBC Urine 0-3 /hpf
[2021-04-04 15:26] LABS: Alanine Aminotransferase 26 U/L (4-35); Albumin Level 4.7 g/dL (3.5-5.1); Alkaline Phosphatase 111 U/L (38-126); Anion Gap 9 mmol/L (8-16); Aspartate Amino Transferase 25 U/L (14-36); Bilirubin,Total 0.5 mg/dL (0.2-1.3); Blood Urea Nitrogen 12 mg/dL (7-17); Carbon Dioxide 23 mmol/L (22-30); Chloride 106 mmol/L (98-107); Estimated CRCL calculation 91 ml/min; Estimated Glomerular Filt Rate > 60; Glucose 121 mg/dL (65-110); Lipase 29 U/L (23-300); Potassium 3.5 mmol/L (3.4-5.0); Sodium 138 mmol/L (137-145)
[2021-04-04 15:55] VITALS: BP 130/86; PULSE 66; RESP 16; O2SAT 98
[2021-04-04] MEDS: KETOROLAC 30 MG/ML VIAL (*BKC) IV PUSH (16:59)
[2021-04-04] MEDS: ONDANSETRON INJ 4 MG/2 ML VIAL IV PUSH (17:00)
[2021-04-04] MEDS: TAMSULOSIN HCL 0.4 MG CAPSULE PO (18:04)
--- NOTE | 2021-04-04 18:45 | ED.ABDPAIN ---
HPI - Abdominal Pain General Chief Complaint: Abdominal Pain Stated Complaint: LOWER BACK PAIN, NAUSEA Time Seen by Provider: 04/04/21 15:46 Source: patient Mode of arrival: ambulatory Limitations: no limitations History of Present Illness HPI narrative: 36-year-old female Generally healthy Presents for evaluation of right-sided abdomen and flank pain Patient states that 2 hours [place] had a sudden onset of excruciating right flank pain accompanied by several bouts of emesis and dry heaves which did not relieve her symptoms She does not have a fever, she did not have any gross hematuria or dysuria No diarrhea or other GI symptoms She had a tubal ligation and a uterine ablation and does not recall when she last had a period She believes she had a history of a kidney stone once before but today's episode is far more severe than she recalls that being She has been working out and lost over 30 pounds Related Data Allergies Allergy/AdvReac Type Severity Reaction Status Date / Time metronidazole [From Metrogel] Allergy Mild REDNESS, Verified 04/04/21 15:58 IRRITATION Review of Systems Review of Systems: All systems reviewed & are unremarkable except as noted in HPI and below Constitutional: Constitutional: Reports no additional constitutional complaints, Denies chills, Denies fever(s) and Denies headache(s) Eyes: Eyes: Reports no additional eye complaints and Denies change in vision ENT: Denies headache(s) and Denies sore throat Cardiovascular: Cardiovascular: Denies chest pain and Denies dyspnea Respiratory: Respiratory: Denies cough and Denies dyspnea Gastrointestinal: Gastrointestinal: Reports abdominal pain, Denies diarrhea, Reports nausea and Reports vomiting Genitourinary: Genitourinary: Denies hematuria, Denies urinary frequency, Denies nocturia, Denies dysuria and Reports flank pain Musculoskeletal: Musculoskeletal: Denies deformity, Denies arthralgias, Denies joint swelling and Denies numbness Integumentary/Breasts: Skin/Breast: Denies rash and Denies wounds Neurologic: Denies headache(s), Denies focal weakness and Denies numbness Psychiatric: Psychiatric: Reports no additional psychiatric complaints Endocrine: Endocrine: Reports no additional endocrine complaints Hematologic/Lymphatic: Hematologic/Lymphatic: Reports no additional hematologic/lymphatic complaints Allergic/Immunologic: Allergic/Immunologic: Reports no additional allergic/immunologic complaints PMFSH Past Medical History Medical History Chlamydia Hemorrhoids Kidney stone Ovarian cyst Spontaneous Surgical History Surgical History H/O dilation and curettage x2 H/O laparoscopy History of endometrial ablation Hx of section Social History Social History Smoking packs per day: 1 Smoking cigarettes per day: 20.0 Years smoked: 20 Smoking pack-years: 20.00 Smoking status: Current every day smoker Tobacco type: cigarettes Second hand tobacco smoke exposure: Yes Alcohol intake: never Gender identity (if verbalized by the patient): Female Spiritual care concerns: No Exam Const: General: cooperative and alert Orientation/consciousness: patient oriented x3 (alert) Other: Mild distress HENMT: Head: normal to inspection, normocephalic and atraumatic Ears: external ears normal General nose exam: no epistaxis Eyes: Conjunctivae: conjunctivae normal EOM: EOMs intact bilaterally Neck: Neck: normal visual inspection, supple and no JVD Resp: Effort & Inspection: normal respiratory effort and not labored Auscultation: not clear to auscultation bilaterally and other (BS =) Cardio: Rate: regular rate Rhythm: regular rhythm Heart sounds: no murmurs GI: Inspection: non-distended GI Palp: Yes Soft to
[2021-04-04 19:18] VITALS: BP 124/95; PULSE 95; RESP 16; O2SAT 100
== END 2021-04-04 19:22 | disposition home or self-care (01) ==
PROVIDERS: Emergency Medicine; Emergency Provider Emergency Medicine; PCP Emergency Medicine
DX: N13.2 Hydronephrosis with renal and ureteral calculous obstruction (principal); Z87.442 Personal history of urinary calculi; F17.210 Nicotine dependence, cigarettes, uncomplicated
CPT/HCPCS: 36415; 74176; 80053; 81001; 81025; 83690; 85025; 96374; 96375; 99284; A9270; J1885; J2405

== ENCOUNTER 2021-04-13 05:48 | Emergency (ER) | payer BC, SELFPAY ==
--- NOTE | ~2021-04-13 | CT_ITS ---
EXAMINATION: CT abdomen pelvis w con DATE: 04/13/2021 07:14 INDICATION: Abdominal pain, nausea and vomiting. Constipation. History of recent kidney stone. TECHNIQUE: Computed tomography (CT) of the abdomen and pelvis was performed with 100 cc Omnipaque 350 intravenous contrast. Automated exposure control and iterative reconstruction technique were employe d. Exam dose: 817.66 mGy-cm total exam DLP. COMPARISON: 04/04/2021 CT abdomen pelvis FINDINGS: The lung bases are clear of infiltrate or consolidation. Normal heart size. No pericardial or pleural effusion. The gallbladder is present. No gallbladder wall thickening or pericholecystic fluid or fat stranding. No bile duct or pancreatic duct dilatation. No hepatic, splenic, pancreatic, and adrenal space-occupying mass lesion. Two right renal cysts, measuring up 11 mm. Two left renal cyst measuring up to 2.4 cm. No urinary tract calculus or hydroureteronephrosis. The urinary bladder is unremarkable. Normal caliber of the abdominal aorta. Since 04/04/2021 there is irregular hypoenhancing irregular 4.2 cm vertical 2.5 cm anteroposterior and 2.7 cm transverse soft tissue mass of the body of the uterus with fluid distention of the upper uter ine endometrial cavity and cornua. No intraperitoneal or retroperitoneal or pelvic mass lesion or adenopathy or ascites is noted otherwi se. Small fat-containing umbilical hernia. Normal appendix. No bowel obstruction, bowel wall thickening, pneumatosis or intraperitoneal free air . IMPRESSION: Irregular prominent soft tissue mass of the body of the uterus with fluid distention of the endometrial cavity superiorly. Gynecologic consult is recommended. Bilateral renal cysts Reviewed, dictated and finalized at [facility]. Reviewed, dictated and finalized at location [facility]. IMPRESSION: Irregular prominent soft tissue mass of the body of the uterus wit h fluid distention of the endometrial cavity superiorly. Gynecologic consult is recommended. Bilateral renal cysts
--- NOTE | ~2021-04-13 | US_ITS ---
US pelvic complete w TV DATE: 04/13/2021 09:05 INDICATION: Uterine mass TECHNIQUE: Real-time imaging via transabdominal and transvaginal approaches COMPARISON: 04/13/2021 CT abdomen pelvis FINDINGS: The uterus measures approximately 10 cm height, 4.7 cm anteroposterior dimension. There is a monique ill-defined irregular approximately 2.8 x 4 cm soft tissue mass of the lower uterine segment; endometrial malignancy is suspected. Less likely considerations in the differential diagnosi s includes abscess, hemorrhage, completed . Gynecologic consult is recommended. The ovaries are unremarkable. No pelvic free fluid collection. IMPRESSION: Irregular lower uterine segment soft tissue mass, suspicious for endometrial malignancy Reviewed, dictated and finalized at [facility]. Reviewed, dictated and finalized at location A. IMPRESSION: Irregular lower uterine segment soft tissue mass, suspicious for en dometrial malignancy
[2021-04-13 05:54] VITALS: BP 146/87; PULSE 78; RESP 18; TEMP 36.9; O2SAT 99
[2021-04-13] MEDS: SODIUM CHLORIDE 0.9% IV 1,000 ML 999 ML IV CONT (06:23)
[2021-04-13] MEDS: ONDANSETRON INJ 4 MG/2 ML VIAL IV PUSH (06:23)
[2021-04-13] MEDS: MORPHINE SULFATE (*CRX) 4 MG/ML INJ IV PUSH (06:23)
[2021-04-13 06:35] LABS: Basophils Absolute Auto 0.1 K/mm3 (0.0-0.1); Basophils Percent Auto 0.8 % (0.2-1.2); Eosinophils Absolute Auto 0.3 K/mm3 (0-0.3); Eosinophils Percent Auto 2.3 % (0-4.4); Hematocrit 43.3 % (37.0-47.0); Immature Granulocyte Absolute 0.07 K/mm3 (0.00-0.031); Immature Granulocyte Percent A 0.6 % (0-0.5); Lymphocytes Absolute Auto 2.58 K/mm3 (0.9-3.2); Lymphocytes Percent Auto 22.2 % (18.3-44.2); Mean Corpuscular HGB Conc 34.6 g/dl (32-36); Mean Corpuscular Hemoglobin 31.2 pg (26-34); Mean Platelet Volume 9.3 fl (7.4-10.4); Monocytes Absolute Auto 0.8 K/mm3 (0.1-0.6); Monocytes Percent Auto 6.9 % (2.6-8.5); Neutrophils Absolute Auto 7.8 K/mm3 (1.3-6.7); Neutrophils Percent Auto 67.2 % (45.5-73.1); Platelet Count Result 380 k/mm3 (150-375); Red Blood Count 4.81 M/mm3 (4.2-5.4); Red Cell Distribution Width 11.9 % (11.5-14.5); White Blood Count 11.6 K/mm3 (4.5-10.0)
[2021-04-13 06:42] LABS: Add Urine Microscopic? YES; Appearance Urine Clear (Clear); Bilirubin Urine Negative (Negative); Blood Urine Negative (Negative); Color Urine Yellow (Yellow); Glucose Urine UA Negative (Negative); Ketones Urine Negative (Negative); Leukocyte Esterase Ur Negative LEU/UL (Negative); Mucus Urine Moderate /lpf; Nitrate Urine Negative (Negative); Protein Urine 2+ mg/dL (Negative); RBC Urine 0-2 /hpf (0-2); Specific Grav Ur 1.017 (1.001-1.035); Squamous Epithelial Cell Urine Occasional /hpf (Few); Urobilinogen Urine Negative mg/dL (<2.0); WBC Urine 0-3 /hpf
--- NOTE | 2021-04-13 06:42 | ED.GENADULT ---
HPI - General Adult General Chief complaint: Abdominal Pain <Zeyad Morel MD - Last Filed: 04/13/21 06:48> Stated complaint: constipation <Zeyad Morel MD - Last Filed: 04/13/21 06:48> Time Seen by Provider: 04/13/21 06:03 <Zeyad Morel MD - Last Filed: 04/13/21 06:48> History of Present Illness HPI narrative: Patient is a 36-year-old female presents the emergency department with chief complaint of abdominal pain. Patient was recently seen in the emergency department and diagnosed with a kidney stone the patient has been taking [place] and has noticed that she has not had a bowel movement in 2 days and reports that she has been having diffuse abdominal pain. Patient states that she has had bouts of nausea and vomiting and has been unable to tolerate p.o. intake. <Zeyad Morel MD - Last Filed: 04/13/21 06:48> Related Data Allergies/adverse reactions: Allergies Allergy/AdvReac Type Severity Reaction Status Date / Time metronidazole [From Metrogel] Allergy Mild REDNESS, Verified 04/13/21 05:58 IRRITATION <Zeyad Morel MD - Last Filed: 04/13/21 06:48> Review of Systems Review of Systems: A 10 system review of systems was completed on the patient and is negative except for what is stated in the HPI. Nursing and ancillary documentation was reviewed. <Zeyad Morel MD - Last Filed: 04/13/21 06:48> [facility] Past Medical History Medical History: Medical History Chlamydia Hemorrhoids Kidney stone Ovarian cyst Spontaneous <Zeyad Morel MD - Last Filed: 04/13/21 06:48> Surgical History Surgical History: Surgical History H/O dilation and curettage x2 H/O laparoscopy History of endometrial ablation Hx of section <Zeyad Morel MD - Last Filed: 04/13/21 06:48> Social History Social History: Social History Smoking packs per day: 1 Smoking cigarettes per day: 20.0 Years smoked: 20 Smoking pack-years: 20.00 Smoking status: Current every day smoker Tobacco type: cigarettes Second hand tobacco smoke exposure: Yes Alcohol intake: never Gender identity (if verbalized by the patient): Female Spiritual care concerns: No <Zeyad Morel MD - Last Filed: 04/13/21 06:48> Exam Narrative: GENERAL: Well-appearing, well-nourished, and in no acute distress. HEAD: Normocephalic, atraumatic. EYES: PERRLA and EOMI. ENT: Nares clear, no rhinorrhea or epistaxis. Mucous membranes moist. NECK: Supple. CHEST: Clear to auscultation. No respiratory distress. HEART: Regular rate and rhythm. No murmur heard. Normal peripheral pulses. ABDOMEN: Soft, diffuse moderate tenderness, nondistended, normal active bowel sounds. : No stool in the vault guaiac negative EXTREMITIES: Normal range of motion. No edema. SKIN: Warm, dry, no rash. NEURO: No focal deficits. Alert and oriented x3. PSYCH: Normal mood and affect. <Zeyad Morel MD - Last Filed: 04/13/21 06:48> Course Vital Signs Vital signs: Vital Signs Temperature 36.9 C 04/13/21 05:54 Pulse Rate 78 04/13/21 05:54 Respiratory Rate 18 04/13/21 05:54 Blood Pressure 146/87 H 04/13/21 05:54 Pulse Oximetry 99 04/13/21 05:54 Temperature 36.9 C 04/13/21 05:54 Pulse Rate 86 04/13/21 09:30 Respiratory Rate 15 04/13/21 09:30 Blood Pressure 130/82 04/13/21 09:30 Pulse Oximetry 97 04/13/21 09:30 <Zeyad Morel MD - Last Filed: 04/13/21 06:48> Vital Signs Temperature 36.9 C 04/13/21 05:54 Pulse Rate 78 04/13/21 05:54 Respiratory Rate 18 04/13/21 05:54 Blood Pressure 146/87 H 04/13/21 05:54 Pulse Oximetry 99 04/13/21 05:54 Luca
[2021-04-13 06:48] LABS: Alanine Aminotransferase 22 U/L (4-35); Albumin Level 4.6 g/dL (3.5-5.1); Alkaline Phosphatase 105 U/L (38-126); Anion Gap 9 mmol/L (8-16); Aspartate Amino Transferase 22 U/L (14-36); Bilirubin,Total 0.9 mg/dL (0.2-1.3); Blood Urea Nitrogen 8 mg/dL (7-17); Calcium 8.7 mg/dL (8.4-10.2); Carbon Dioxide 25 mmol/L (22-30); Chloride 104 mmol/L (98-107); Estimated CRCL calculation 102 ml/min; Estimated Glomerular Filt Rate > 60; Glucose 124 mg/dL (65-110); Lipase 15 U/L (23-300); Potassium 3.8 mmol/L (3.4-5.0); Sodium 138 mmol/L (137-145)
--- NOTE | 2021-04-13 06:59 | PC.NURSE ---
Patient in CT at this time.
--- NOTE | 2021-04-13 07:14 | PC.NURSE ---
Assumed care of pt, pt is alert and upright on stretcher - returning from CT scan. Fluids infusing. VSS. Discussed POC.
[2021-04-13 07:15] VITALS: BP 137/82; PULSE 86; RESP 15; O2SAT 98
[2021-04-13 08:26] VITALS: BP 136/81; PULSE 66; RESP 18; O2SAT 97
[2021-04-13] MEDS: PROCHLORPERAZINE EDISYLATE 10 MG/2 ML VIAL IV PUSH (08:29)
[2021-04-13] MEDS: KETOROLAC 30 MG/ML VIAL (*BKC) IV PUSH (08:31)
[2021-04-13 09:30] VITALS: BP 130/82; PULSE 86; RESP 15; O2SAT 97
[2021-04-13 10:39] VITALS: PULSE 72; RESP 16; O2SAT 98
== END 2021-04-13 10:41 | disposition home or self-care (01) ==
PROVIDERS: Emergency Provider Emergency Medicine; PCP Emergency Medicine
DX: R10.2 Pelvic and perineal pain (principal); N84.0 Polyp of corpus uteri; F17.210 Nicotine dependence, cigarettes, uncomplicated; N28.1 Cyst of kidney, acquired; Z87.442 Personal history of urinary calculi
CPT/HCPCS: 36415; 74177; 76830; 76856; 80053; 81001; 81025; 83605; 83690; 85025; 96361; 96374; 96375; 99284; J0780; J1885; J2270; J2405; J7030; Q9967

== ENCOUNTER → 2021-08-09 00:17 | Outpatient (CLI) | payer BC, SELFPAY ==
[2021-08-09 12:56] LABS: SARS-CoV-2 RNA PCR Negative
== END ==
PROVIDERS: PCP Emergency Medicine; Visit Provider Obstetrics & Gynecology
DX: Z01.812 Encounter for preprocedural laboratory examination (principal); Z20.822 Contact with and (suspected) exposure to COVID-19
CPT/HCPCS: C9803; U0003; U0005

== ENCOUNTER 2021-08-11 09:52 | Outpatient (CLI) | payer BC, SELFPAY ==
--- NOTE | 2021-08-11 10:00 | ECG_ITS ---
Measurements Intervals [place] Rate: 77 P: 31 WA: 185 QRS: -16 QRSD: 97 T: 5 QT: 360 QTc: 408 Interpretive Statements SINUS RHYTHM POOR R WAVE PROGRESSION, ANTERIOR LEADS BORDERLINE T WAVE ABNORMALITY- INFERIOR LEADS BORDERLINE ECG Electronically Signed On 08-11-2021 10:57:26 BALING PRESS OPERATOR by Chavo Burns D.O.
== END 2021-08-11 09:53 | disposition home or self-care (01) ==
LOC: ANHSURGERY 09:55
PROVIDERS: PCP Emergency Medicine; Visit Provider Obstetrics & Gynecology
DX: Z01.818 Encounter for other preprocedural examination (principal); N92.1 Excessive and frequent menstruation with irregular cycle; F17.210 Nicotine dependence, cigarettes, uncomplicated
CPT/HCPCS: 36415; 86850; 86900; 86901; 93005

== ENCOUNTER → 2021-08-13 00:46 | Day surgery (SDC) | payer BC, SELFPAY ==
[2021-08-06 08:22] VITALS: BMI 34.8
--- NOTE | 2021-08-06 08:38 | PC.NURSE ---
Report to the Outpatient Waiting Room, entrance under the green pavilion located off [facility], at time 12:30 on date 08/13/21. OR Time: 2:30. - You will be asked a series of questions to screen for COVID 19 for your protection. - A mask is required within the hospital. - No visitors are allowed at this time. Preoperative COVID Testing Requirements: COVID TEST 2/ AT 9:00 No COVID Test needed if: (proof is required; if not received patient will have Rapid Test prior to entry) - Patient has received COVID Vaccine at least 14 days prior to procedure date or - Patient has positive COVID test result within last 90 days of surgery date. COVID Test needed if above criteria is not met If not COVID vaccinated a COVID test must be conducted within 72 hours of surgery and patient is asked to isolate self from time of testing until procedure. You will go to the [facility] for your COVID testing. The [facility] site is located at the corner of [address] [facility]. You will only be called if COVID results are positive and your surgeon may reschedule your elective surgery date. Patients may have clear liquids (water, carbonated beverages, clear teas, apple juice) until 3 hours prior to surgery (11:30) with a maximum of 20 ounces. - No food from midnight until time of surgery Take the following medications with a SIP of water the morning of surgery: AMOXICILLIN Medications to discontinue per physician: NAPROXEN Date to take last dose: PER DR. SHEPPARD Please no make-up, nail luxembourgish, hairspray, perfume, deodorant, or body powder the day of surgery. No jewelry (including any body piercings) or valuables the day of surgery, leave them at home. Please take a shower or bath the night before, or the morning of, surgery with an antibacterial soap. Wear comfortable, loose fitting clothing. - Jewelry must be removed prior to entering the operating room. Rings and piercings that are not removed may be cut off. - The hospital will not accept responsibility for valuables. - Please leave all valuables, including medications, at home the day of surgery. If you are going home after surgery, a licensed lumber stacker driver must drive you home. - NO public transportation without another adult. - We recommend that an adult stay with you for 24 hours following discharge. - We also recommend that you do not drive, make important decision, drink alcoholic beverages, or take any drugs that were not prescribed by your health care provider for at least 24 hours after your discharge time. Follow any additional instructions given to you from your surgeon. Telephone instructions given to CORA URENA and asked if any additional questions and then verbalized understanding. Patient advised to call surgeon office or pre surgery nurse liaison [phone] if any additional questions.
[2021-08-13] VITALS (9 sets, daily range): BP systolic 116–140; BP diastolic 71–83; PULSE 66–102; RESP 15–18; TEMP 36.1–37.2; O2SAT 94–100
[2021-08-13] MEDS: LACTATED RINGERS 1,000 ML 30 ML IV CONT ×3 (13:16→18:10)
[2021-08-13] MEDS: ACETAMINOPHEN 500 MG TABLET 1000 MG PO (13:17)
[2021-08-13] MEDS: KETOROLAC 15 MG/ML VIAL (*BKC) IV PUSH (13:17)
--- NOTE | 2021-08-13 14:21 | P.PNAN_ITS ---
Anes - Initial Pre Proc Eval Procedure: Operation Date: 08/13/21 14:30 Proposed Procedures p Robotic Assisted Total Vaginal Hysterectomy with Bilateral Salpingectomy - Larry Zaman MD Date/Time: 08/13/21 14:21 Surgeon: Larry Zaman MD Pre Op Diagnosis: irregular excessive bleeding, fibroids, pain Patient Data Age: 36 Gender: F Height: 1.63 m Weight: 93.4 kg Last Vital Signs Temp 98.2 F 08/13/21 12:49 Pulse 80 08/13/21 12:49 Resp 18 08/13/21 12:49 BP 140/71 08/13/21 12:49 Pulse Ox 100 08/13/21 12:49 Allergies Allergy/AdvReac Type Severity Reaction Status Date / Time metronidazole [From Metrogel] Allergy Mild REDNESS, Verified 08/13/21 13:33 IRRITATION Home Medications Medication Instructions Recorded Confirmed Type naproxen [Naprosyn] 500 mg PO BID #20 tablet 04/13/21 08/13/21 Rx Patient hx anesthesia problems: none Family hx anesthesia problems: none Results Review: All pre-operative results and documents have been reviewed as part of the pre-operative evaluation. FORMERLY [facility], [facility] Past Medical History Medical History Chlamydia Hemorrhoids Kidney stone Ovarian cyst Spontaneous Surgical History Surgical History H/O dilation and curettage x2 H/O laparoscopy History of endometrial ablation Hx of section Social History Social History Smoking packs per day: 1 Smoking cigarettes per day: 20.0 Years smoked: 23 Smoking pack-years: 23.00 Smoking status: Current every day smoker Tobacco type: cigarettes Second hand tobacco smoke exposure: Yes Alcohol intake: never Substance use: never Substance use type: does not use Living arrangements: with family Gender identity (if verbalized by the patient): Female Spiritual care concerns: No Anes - Eval Final PreProcedure Day of Procedure 08/13/21 14:21 Patient weight: obese Heart: regular rate and rhythm Lungs: clear to auscultation Airway: Mallampati scale class II Neurological: alert and oriented Last oral intake: >/= 8 hours ASA classification: II Emergent: no Anesthetic plan: proceed Anesthesia type and monitoring: general ETT and standard monitoring Results Review: All pre-operative results and documents have been reviewed as part of the pre-operative evaluation. Informed Consent: The patient's anesthetic plan and its attendant risks and benefits were discussed with the patient/family/POA. Questions were solicited and answers provided to the satisfaction of the patient/family/POA.
--- NOTE | 2021-08-13 15:08 | SUR.PREOP ---
Resting without complaints. Discussed continued delay, voices understanding.
--- NOTE | 2021-08-13 15:21 | PM.IMHP ---
H&P: HPI History of Present Illness Date/Time: 08/13/21 15:21 36 y/o who has had a tubal ligation with endometrial ablation. She did well initially, but has now had dysmenorrhea and menometrorrhagia. She is here requesting definitive management with hysterectomy. Chief Complaint: Heavy, painful periods Review of Systems Review of Systems: All systems reviewed & are unremarkable except as noted in HPI and below PMFSH Past Medical History Medical History Chlamydia Hemorrhoids Kidney stone Ovarian cyst Spontaneous Surgical History Surgical History H/O dilation and curettage x2 H/O laparoscopy History of endometrial ablation Hx of section Social History Social History Smoking packs per day: 1 Smoking cigarettes per day: 20.0 Years smoked: 23 Smoking pack-years: 23.00 Smoking status: Current every day smoker Tobacco type: cigarettes Second hand tobacco smoke exposure: Yes Alcohol intake: never Substance use: never Substance use type: does not use Living arrangements: with family Gender identity (if verbalized by the patient): Female Spiritual care concerns: No Meds Home Medications and Allergies Home Medications Medication Instructions Recorded Confirmed Type naproxen [Naprosyn] 500 mg PO BID #20 tablet 04/13/21 08/13/21 Rx Allergies Allergy/AdvReac Type Severity Reaction Status Date / Time metronidazole [From Metrogel] Allergy Mild REDNESS, Verified 08/13/21 13:33 IRRITATION Vital Signs Vital Signs - 24 hr 08/13/21 12:49 Temperature 36.8 C Pulse Rate 80 Respiratory Rate 18 Blood Pressure 140/71 Pulse Oximetry 100 Exam Const: Orientation/consciousness: patient oriented x3 Other: Well-developed, well-nourished female in no acute distress. Neck: Thyroid: thyroid normal Lymphatic: no lymphadenopathy noted (in neck, axilla or inguinal nodes) Resp: Effort & Inspection: normal respiratory effort Auscultation: clear to auscultation bilaterally Cardio: Rate: regular rate Rhythm: regular rhythm Heart sounds: S1 normal heart sound present and S2 normal heart sound present GI: Other: ABD: Soft, nontender, nondistended. No guarding or rebound tenderness. No hepatosplenomegaly. : General: Yes no CVA tenderness Other: External genitalia: normal female hair distribution, without lesion. Urethral meatus: no lesion, non prolapsed. Bladder: no mass, nontender Vagina: well-estrogenized, without lesion or discharge. No cystocele or rectocele. Cervix: no lesion or discharge. Uterus: small, anteverted, freely mobile, nontender Adnexa: no mass or tenderness. Anus/perineum: no lesions, nontender Back/Spine/Pelvis: Back: no CVA tenderness Skin: General skin exam: normal color and no rashes or lesions noted Neuro: General: patient oriented x3 Extrem: Other: Extremities: nontender with no edema Psych: Mental Status: mental status grossly normal Affect: normal affect Assessment and Plan Assessment and plan (1) Menometrorrhagia: Code(s): N92.1 - Excessive and frequent menstruation with irregular cycle Status: Acute Assessment and Plan: A: Menometrorrhagia with dysmenorrhea, refractory to conservative management. P: We have reviewed medical and surgical management options. She would like definitive management with hysterectomy. Plan robotic TVH with bilateral salpingectomies. Plan to leave the ovaries in situ. She understands hysterectomy will render her permanently sterile. She understands risks of surgery to include risks of anesthesia, risks of pain, infection, bleeding, blood products, thromboembolic phenomena and damage to adjacent structures such as bowel, bladder, ureters, blood vessels and nerves. She understands all these risks and elect
--- NOTE | 2021-08-13 15:37 | P.HPUP_ITS ---
History and Physical Update Update Date/Time: 08/13/21 15:37 History and Physical has been reviewed, including an updated exam of the patient. She has a left labial cyst that is uncomfortable. She'd like to have it incised and drained. Otherwise, there are NO changes in the patient's co ndition. Risks, benefits, and alternatives have been discussed and questions answered. Patient agrees to proceed with procedure. Plan robotic assisted total vaginal hysterectomy with bilateral salpingectomies and incision and drainage of left labial cyst.
[2021-08-13] MEDS: ceFAZolin 2 GM/D5W 50 ML 2 GM/50 ML BAG IVPB (15:57)
[2021-08-13] MEDS: fentaNYL CITRATE INJ (*CRX) 100 MCG/2 ML VIAL 25 MCG IV PUSH ×7 (17:44→18:52)
--- NOTE | 2021-08-13 18:06 | P.OP_ITS ---
Procedure Note - Detailed Date of Procedure 08/14/21 Pre-op Diagnosis Menometrorrhagia, dysmenorrhea, left labial cyst Post-op Diagnosis same Procedure Performed Robotic assisted total vaginal hysterectomy with bilateral salpingectomies, i ncision and drainage of left labial cyst Surgeon Larry Zaman MD Anesthesia general Findings Normal-appearing uterus, ovaries, vermiform appendix. Fallopian tubes demonstrated evidence of prior tubal ligation. Description of Procedure The patient was taken to the operating room where general endotracheal anesthesia was administered. She was prepared and draped in the usual sterile fashion in the dorsal lithotomy position. The bladder was drained with Tavarez catheter. The cervix was visualized and the anterior lip was grasped using a single-tooth tenaculum. The cervix was gently dilated using Hegar dilators. Th e STACEY 2 uterine manipulator was then placed and the tenaculum was removed. Gloves were changed and attention was turned to the abdomen. A supraumbilical skin incision was made with the scalpel. The Veress needle was advanced and pneumoperitoneum was administered using carbon dioxide gas. The bladeless trocar was then advanced. Intraperitoneal placement was confirmed using the laparoscope. Lateral ports and an phlebotomy lab assistant port were all placed using bladeless trocars under direct laparoscopic visualization. She was placed in Trendelenburg position and the patient cart was docked. I assumed the console. The ureters were visualized bilaterally. The round ligament on the right was divided. The uteroovarian ligament was divided. The broad ligament was divided, skeletonizing the uterine artery on the right. The bladder was reflected away. The left side was similarly dissected. Colpotomy was performed circumferentially. The specimen was removed and passed off to be sent to patho logy. The vaginal cuff was reapproximated using 0 Vicryl in interrupted [id number] fashion. The pelvis was irrigated copiously using warmed normal saline. Rigorous hemostasis was assured. HemaDerm was applied to the vaginal cuff. The pedicles were inspected once again. The ports were then withdrawn and the gas was allowed to escape. The skin incisions were reapproximated using 4 0 Monocryl in interrupted subcuticular fashion. Dermaflex was applied externally. Sponge, lap, needle and instrument counts were correct. Attention was directed to the left labial cyst. The overlying epithelium was incised with a #11 scalpel. Clotted blood was expressed. Hemostasis was excellent here, as well. The patient was awakened and taken to the recovery room in stable condition. I was present and scrubbed through the entire procedure. Implants None Estimated Blood Loss 50 Drains Yes (tavarez) Packing No Pathology yes (uterus, cervix, tubes) Complications None Condition stable Disposition PACU
[2021-08-13] MEDS: ONDANSETRON INJ 4 MG/2 ML VIAL IV PUSH (18:23)
--- NOTE | 2021-08-13 19:07 | ADMGEN ---
This patient, Lyly Pérez, was admitted to OB 2nd Floor Room 281-00. Patient/family oriented to hospital policies and general routines including ID bracelet, bed and alarms, visiting hours, pain management, procedures, bathroom and other care routines, personal items, smoking policy, room service/diet, and visiting hours. Information on how to activate the Rapid Response Team has been discussed. Patient/Family are encouraged to report perceived risks to care and to ask questions if they do not understand what they are told or what they should do.
[2021-08-13] MEDS: DEXTROSE 5%/0.45% SOD CHL 1,000 ML 125 ML IV CONT (19:36)
[2021-08-13] MEDS: MORPHINE SULFATE (*CRX) 4 MG/ML INJ IV PUSH ×2 (19:40→23:43)
[2021-08-13] MEDS: KETOROLAC 30 MG/ML VIAL (*BKC) IV PUSH (19:40)
[2021-08-13] MEDS: HYDROcodone/acetaminophen (*CRX) 10-325 MG TABLET 1 TAB PO (21:15)
[2021-08-13] MEDS: SIMETHICONE 80 MG TAB.CHEW PO (23:43)
[2021-08-13] MEDS: ENOXAPARIN 40 MG/0.4 ML SYRINGE SUB-Q (23:43)
[2021-08-14] MEDS: HYDROcodone/acetaminophen (*CRX) 10-325 MG TABLET 1 TAB PO ×4 (00:34→10:49)
[2021-08-14] MEDS: KETOROLAC 30 MG/ML VIAL (*BKC) IV PUSH ×2 (01:40→07:49)
[2021-08-14 03:30] VITALS: BP 110/66; PULSE 93; RESP 16; TEMP 36.8; O2SAT 98
[2021-08-14] MEDS: SIMETHICONE 80 MG TAB.CHEW PO ×2 (03:38→07:51)
[2021-08-14] MEDS: MORPHINE SULFATE (*CRX) 4 MG/ML INJ IV PUSH (05:17)
[2021-08-14 05:32] LABS: Basophils Percent Auto 0.3 % (0.2-1.2); Hematocrit 39.9 % (37.0-47.0); Hemoglobin 13.6 g/dL (12.0-15.0); Immature Granulocyte Absolute 0.08 K/mm3 (0.00-0.031); Immature Granulocyte Percent A 0.5 % (0-0.5); Lymphocytes Absolute Auto 0.92 K/mm3 (0.9-3.2); Lymphocytes Percent Auto 6.3 % (18.3-44.2); Mean Corpuscular HGB Conc 34.1 g/dl (32-36); Mean Corpuscular Hemoglobin 30.7 pg (26-34); Mean Corpuscular Volume 90.1 fl (80-100); Mean Platelet Volume 9.9 fl (7.4-10.4); Monocytes Absolute Auto 0.8 K/mm3 (0.1-0.6); Monocytes Percent Auto 5.2 % (2.6-8.5); Neutrophils Absolute Auto 12.9 K/mm3 (1.3-6.7); Neutrophils Percent Auto 87.7 % (45.5-73.1); Platelet Count Result 377 k/mm3 (150-375); Red Blood Count 4.43 M/mm3 (4.2-5.4); Red Cell Distribution Width 11.9 % (11.5-14.5); White Blood Count 14.7 K/mm3 (4.5-10.0)
[2021-08-14 08:00] VITALS: BP 110/79; PULSE 50; RESP 18; TEMP 36.3; O2SAT 100
--- NOTE | 2021-08-14 09:05 | PM.GYNPNOP ---
FLAP PRESSER - A/P Assessment and plan (1) Dysmenorrhea: Code(s): N94.6 - Dysmenorrhea, unspecified Status: Acute (2) Menometrorrhagia: Code(s): N92.1 - Excessive and frequent menstruation with irregular cycle Status: Acute Assessment and Plan: A: POD#1 s/p robotic assisted TVHBS, I&D of labial cyst. Doing well. P: Home to f/u 2 weeks. Postoperative Procedures: Procedures Operation Date: 08/13/21 14:30 Actual Procedure Side Surgeon p Robotic Assisted Total Vaginal Hysterectomy with Bilateral Salpingectomy Bilateral Larry Zaman MD s Incision and Drainage of Left sided Bartholin's Cyst Left Larry Zaman MD Time Spent With Patient Time with patient: less than 15 minutes FLAP PRESSER- PN:Subj Post-Op Subjective Date/time seen: 08/14/21 09:05 Interval history: Pain OK. Tolerating diet. Voiding. Would like to go home. Exam Narrative: AVSS I/O OK ABD soft, nontender. Incisions c/d/i. EXT nontender FLAP PRESSER - PN: Obj Data Vital Signs Vital Signs: Vital Signs - 24 hr 08/13/21 12:49 08/13/21 17:35 08/13/21 17:50 Temperature 36.8 C 36.1 C L Pulse Rate 80 73 69 Respiratory Rate 18 15 16 Blood Pressure 140/71 132/80 124/83 Pulse Oximetry 100 99 97 08/13/21 18:05 08/13/21 18:20 08/13/21 18:35 Temperature Pulse Rate 70 71 66 Respiratory Rate 15 15 15 Blood Pressure 129/82 116/78 116/79 Pulse Oximetry 98 94 96 08/13/21 18:50 08/13/21 19:15 08/13/21 23:40 Temperature 36.9 C 37.2 C Pulse Rate 75 85 102 H Respiratory Rate 18 16 16 Blood Pressure 122/78 130/79 127/79 Pulse Oximetry 99 98 96 08/14/21 03:30 08/14/21 08:00 Temperature 36.8 C 36.3 C L Pulse Rate 93 50 L Respiratory Rate 16 18 Blood Pressure 110/66 110/79 Pulse Oximetry 98 100 Intake/Output Intake/Output: Intake & Output 08/11/21 08/12/21 08/13/21 08/14/21 23:59 23:59 23:59 23:59 Intake Total 2200 1950 Output Total 1630 0270 Balance 570 550 Meds/Results Medications: Active Medications Generic Name Dose Route Start Last Admin Trade Name Freq PRN Reason Stop Dose Admin Hydrocodone Bitart/Acetaminophen 1 tab 08/13/21 19:00 Hydrocodone/Acetaminophen (*Crx) 5-325 Mg Tablet PO Q3H PRN Pain Rated 5 or Less Hydrocodone Bitart/Acetaminophen 1 tab 08/13/21 19:00 08/14/21 07:50 Hydrocodone/Acetaminophen (*Crx) 10-325 Mg Tablet PO 1 tab Q3H PRN Administration Pain Rated 6 or Greater Enoxaparin Sodium 40 mg 08/13/21 23:00 08/13/21 23:43 Enoxaparin 40 Mg/0.4 Ml Syringe SUB-Q 40 mg Q24H RENEE Administration Dextrose/Sodium Chloride 1,000 mls @ 125 mls/hr 08/13/21 19:00 08/14/21 03:40 Dextrose 5% Sodium Chloride 0.45% IV CONT Not Given .Q8H RENEE Ketorolac Tromethamine 30 mg 08/13/21 19:00 08/14/21 07:49 Ketorolac 30 Mg/Ml Vial (*Bkc) IV PUSH 08/18/21 18:59 30 mg Q6H PRN Administration Pain Rated 4-6 Metoclopramide HCl 10 mg 08/13/21 19:00 Metoclopramide Hcl Inj 10 Mg/2 Ml Vial IV PUSH Q6H PRN Nausea Morphine Sulfate 4 mg 08/13/21 19:00 08/14/21 05:17 Morphine Sulfate (*Crx) 4 Mg/Ml Inj IV PUSH 4 mg Q4H PRN Administration Pain Rated 7-10 Naloxone HCl 0.1 mg 08/13/21 19:00 Naloxone Hcl 0.4 Mg/Ml Vial IV PUSH Q2M PRN Respiratory rate less than 10 Ondansetron HCl 4 mg 08/13/21 19:00 Ondansetron Inj 4 Mg/2 Ml Vial IV PUSH Q6H PRN Nausea Simethicone 80 mg 08/13/21 19:00 08/14/21 07:51 Simethicone 80 Mg Tab.Chew PO 80 mg Q2H PRN Administration Gas Labs CBC & Chem 7: 08/14/21 03:27 Labs: Laboratory Results - last 24 hr 08/14/21 03:27 WBC 14.7 H RBC 4.43 Hgb 13.6 Hct 39.9 MCV 90.1 MCH 30.7 MCHC 34.1 RDW 11.9 Plt Count 377 H MPV 9.9 Immature Gran % (Auto) 0.5 Neut % (Auto) 87.7 H Lymph % (Auto) 6.3 L Wilkin % (Auto) 5.2 Eos % (Auto) 0.0 Baso % (Auto) 0.3 Lymph # (Auto) 0.92 Wilkin # (Auto) 0.8
--- NOTE | 2021-08-14 09:36 | PC.NURSE ---
Discharge instructions given per Dr. Zaman. Pt. verbalized understanding. No questions or concerns voiced.
[2021-08-14] MEDS: DOCUSATE SODIUM 100 MG CAPSULE PO (10:50)
== END ==
LOC: ANHSURGERY 12:31 → ANHOB2 08-14 08:24 → ANHSURGERY 08-15 07:39
PROVIDERS: PCP Emergency Medicine; Visit Provider Obstetrics & Gynecology
PROC: (CPT 58552; principal; 2021-08-13 14:30)
PROC: (CPT 56440; 2021-08-13 14:30)
DX: N92.1 Excessive and frequent menstruation with irregular cycle (principal); N94.6 Dysmenorrhea, unspecified; N90.7 Vulvar cyst; N80.0 Endometriosis of uterus; D25.2 Subserosal leiomyoma of uterus; N73.6 Female pelvic peritoneal adhesions (postinfective); F17.210 Nicotine dependence, cigarettes, uncomplicated; E66.9 Obesity, unspecified; Z68.35 Body mass index [BMI] 35.0-35.9, adult
CPT/HCPCS: 58552; 10060; S2900; 36415; 85025; 86850; 86900; 86901; 88307; 93005; A9270; C9803; J0330; J0690; J1100; J1170; J1650; J1885; J2250; J2270; J2405; J2704; J2710; J3010; J7030; J7120; U0003; U0005

== ENCOUNTER 2022-02-23 12:28 | Emergency (ER) | payer BC, SELFPAY ==
[2022-02-23 12:34] VITALS: BP 121/77; PULSE 84; RESP 16; TEMP 36.5; O2SAT 99
--- NOTE | 2022-02-23 12:49 | ED.URI ---
HPI - URI/Sore Throat General Chief Complaint: Upper Respiratory Infection Stated Complaint: n/d/lerner/sore throat Time Seen by Provider: 02/23/22 12:49 Source: patient, RN notes reviewed and old records reviewed Mode of arrival: ambulatory Limitations: no limitations History of Present Illness HPI Narrative: 37-year-old female presents to the [facility] with complaints of headache, sore throat and fatigue that started last night. Has taken Tylenol and ibuprofen. States she has a history of strep. Is not COVID or flu vaccinated. Denies fevers, chest pain, abdominal pain. Related Data Home Medications Medication Instructions Recorded Confirmed No Home Medications 02/23/22 02/23/22 Allergies Allergy/AdvReac Type Severity Reaction Status Date / Time metronidazole [From Metrogel] Allergy Mild REDNESS, Verified 08/13/21 19:51 IRRITATION Review of Systems Review of Systems: All systems reviewed & are unremarkable except as noted in HPI and below Constitutional: Constitutional: Reports no additional constitutional complaints, Denies chills and Denies fever(s) Eyes: Eyes: Reports no additional eye complaints ENT: Reports as per HPI and Reports sore throat Cardiovascular: Cardiovascular: Reports no additional cardiovascular complaints Respiratory: Respiratory: Reports no additional respiratory complaints Gastrointestinal: Gastrointestinal: Reports no additional gastrointestinal complaints Musculoskeletal: Musculoskeletal: Reports no additional musculoskeletal complaints Integumentary/Breasts: Skin/Breast: Reports system reviewed and no additional complaints, except as docu Neurologic: Reports as per HPI and Reports headache(s) Psychiatric: Psychiatric: Reports no additional psychiatric complaints Allergic/Immunologic: Allergic/Immunologic: Reports no additional allergic/immunologic complaints PMFSH Past Medical History Medical History Chlamydia Hemorrhoids Kidney stone Ovarian cyst Spontaneous Surgical History Surgical History H/O dilation and curettage x2 H/O laparoscopy History of endometrial ablation Hx of section Social History Social History Smoking packs per day: 1 Smoking cigarettes per day: 20.0 Years smoked: 23 Smoking pack-years: 23.00 Smoking status: Current every day smoker Tobacco type: cigarettes Second hand tobacco smoke exposure: Yes Alcohol intake: never Substance use: never Substance use type: does not use Gender identity (if verbalized by the patient): Female Spiritual care concerns: No Comments At the time of my signature, I reviewed and agree with the nursing past medical, surgical, social, and family history. There is no relevant family history pertinent to the patient complaint. Exam Const: General: healthy appearing, no acute distress and alert Nutritional Appearance: well nourished Orientation/consciousness: patient oriented x3 Limitations: no limitations HENMT: Head: normal to inspection Ears: external ears normal, TM's normal bilaterally and EAC's normal General nose exam: Normal external nose present Face and sinus: normal facial exam Throat: posterior oropharynx normal and uvula midline Eyes: General: appearance normal, both eyes and all related structures Pupils: Equal, round and reactive pupils present Neck: Neck: normal visual inspection, no lymphadenopathy and no meningeal signs Chest: Chest palpation & inspection: normal inspection of the chest Resp: Effort & Inspection: normal respiratory effort and no use of accessory muscles Auscultation: clear to auscultation bilaterally, no crackles, no rales, no rhonchi and no wheezes Cardio: Rate: regular rate Rhythm: regular rhythm Back/Spine/Pelvis: Cervical Spine: normal cervical lordosis Thoraci
== END 2022-02-23 13:25 | disposition home or self-care (01) ==
PROVIDERS: Emergency Provider Nurse Practitioner; PCP Emergency Medicine
DX: J06.9 Acute upper respiratory infection, unspecified (principal); H65.03 Acute serous otitis media, bilateral; F17.210 Nicotine dependence, cigarettes, uncomplicated
CPT/HCPCS: 87081; 99212; G0463

== ENCOUNTER 2022-10-31 14:20 | Emergency (ER) | payer OTHER, SELFPAY ==
--- NOTE | 2022-10-31 14:43 | ED.EYEPROB ---
HPI - Eye Problem General Chief complaint: Eye Problems Stated complaint: Left Eye Pain Time Seen by Provider: 10/31/22 14:43 Source: patient, RN notes reviewed and old records reviewed Mode of arrival: ambulatory Limitations: no limitations History of Present Illness HPI Narrative: 37-year-old female presents to the [facility] with left eye pain since yesterday. Pain is to the lateral aspect of the left eye. States that she felt like there was something under her upper eyelid lateral aspect but that is gone. Denies any trauma. States that she did fall sleep with all of her eye makeup on Onset (ago): day(s) (1) Related Data Allergies Allergy/AdvReac Type Severity Reaction Status Date / Time metronidazole [From Metrogel] Allergy Mild REDNESS, Verified 10/31/22 14:26 IRRITATION Review of Systems Review of Systems: All systems reviewed & are unremarkable except as noted in HPI and below Constitutional: Constitutional: Reports no additional constitutional complaints Eyes: Eyes: Reports as per HPI ENT: Reports system reviewed and no additional complaints, except as documented Cardiovascular: Cardiovascular: Reports no additional cardiovascular complaints, Denies chest pain and Denies dyspnea Respiratory: Respiratory: Reports no additional respiratory complaints, Denies chest congestion, Denies cough and Denies dyspnea Gastrointestinal: Gastrointestinal: Reports no additional gastrointestinal complaints, Denies abdominal pain, Denies nausea and Denies vomiting Musculoskeletal: Musculoskeletal: Reports no additional musculoskeletal complaints Integumentary/Breasts: Skin/Breast: Reports system reviewed and no additional complaints, except as docu Neurologic: Reports system reviewed and no additional complaints, except as documented Psychiatric: Psychiatric: Reports no additional psychiatric complaints Allergic/Immunologic: Allergic/Immunologic: Reports no additional allergic/immunologic complaints [facility] Past Medical History Medical History Chlamydia Hemorrhoids Kidney stone Ovarian cyst Spontaneous Surgical History Surgical History H/O dilation and curettage x2 H/O laparoscopy History of endometrial ablation Hx of section Social History Social History Smoking packs per day: 1 Smoking cigarettes per day: 20.0 Years smoked: 23 Smoking pack-years: 23.00 Smoking status: Current every day smoker Tobacco type: cigarettes Second hand tobacco smoke exposure: Yes Alcohol intake: never Substance use: never Substance use type: does not use Living arrangements: with family Gender identity (if verbalized by the patient): Female Spiritual care concerns: No Comments At the time of my signature, I reviewed and agree with the nursing past medical, surgical, social, and family history. There is no relevant family history pertinent to the patient complaint. Exam Const: General: cooperative, healthy appearing, comfortable, no acute distress, well developed, alert and well nourished Nutritional Appearance: well nourished Orientation/consciousness: patient oriented x3 Limitations: no limitations HENMT: Head: normal to inspection Ears: hearing grossly normal bilaterally and external ears normal Face/Nose/Sinus: Normal external nose present, Normal nares present, Normal nasal mucous membranes and turbinates present and normal facial exam Face and sinus: normal facial exam Mouth: Yes Normal oral and palatal mucosa present, Yes lip normal and Yes moist mucous membranes Throat: posterior oropharynx normal and uvula midline Eyes: General: appearance normal, both eyes and all related structures Alignment and Position: alignment normal Periorbital: periorbital findings normal Conjunctivae: conjunctivae normal Cornea: co
[2022-10-31 14:44] VITALS: BP 138/91; PULSE 97; RESP 20; TEMP 37.1; O2SAT 98
== END 2022-10-31 15:43 | disposition home or self-care (01) ==
PROVIDERS: Emergency Provider Nurse Practitioner; PCP Emergency Medicine
DX: S05.02XA Injury of conjunctiva and corneal abrasion without foreign body, left eye, initial encounter (principal); X58.XXXA Exposure to other specified factors, initial encounter; F17.210 Nicotine dependence, cigarettes, uncomplicated
CPT/HCPCS: 99213; A9270; G0463

== ENCOUNTER 2023-02-18 19:07 | Emergency (ER) | payer OTHER, SELFPAY ==
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
[2023-02-18 19:27] VITALS: BP 136/88; PULSE 90; RESP 16; TEMP 36.5; O2SAT 98
[2023-02-18] MEDS: ONDANSETRON INJ 4 MG/2 ML VIAL IV PUSH (20:50)
[2023-02-18] MEDS: MORPHINE SULFATE (*CRX) 4 MG/ML INJ IV PUSH (20:50)
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
[2023-02-18 21:24] LABS: Estimated CRCL calculation 93 ml/min; Estimated Glomerular Filt Rate > 60
[2023-02-18] MEDS: KETOROLAC 30 MG/ML VIAL (*BKC) IV PUSH (22:26)
[2023-02-18 22:46] VITALS: BP 140/85; PULSE 75; O2SAT 97
== END 2023-02-18 22:47 | disposition home or self-care (01) ==
PROVIDERS: Emergency Provider Physician Assistant; PCP Emergency Medicine
DX: S16.1XXA Strain of muscle, fascia and tendon at neck level, initial encounter (principal); S39.013A Strain of muscle, fascia and tendon of pelvis, initial encounter; S86.911A Strain of unspecified muscle(s) and tendon(s) at lower leg level, right leg, initial encounter; F17.210 Nicotine dependence, cigarettes, uncomplicated; V89.2XXA Person injured in unspecified motor-vehicle accident, traffic, initial encounter; Y92.410 Unspecified street and highway as the place of occurrence of the external cause
CPT/HCPCS: 70450; 72125; 72128; 72132; 73564; 73610; 74177; 96374; 96375; 99284; J1885; J2270; J2405; L0140; Q9967

== ENCOUNTER 2024-03-02 10:46 | Emergency (ER) | payer OTHER, SELFPAY ==
[2024-03-02 11:03] VITALS: BP 125/81; PULSE 101; RESP 16; TEMP 37.2; O2SAT 99
--- NOTE | 2024-03-02 11:50 | ED.URI ---
HPI - URI/Sore Throat General Chief Complaint: Upper Respiratory Infection Stated Complaint: nasal congestion,fever,MAGALLANES,neck tender Time Seen by Provider: 03/02/24 11:50 Source: patient, RN notes reviewed and old records reviewed Mode of arrival: ambulatory Limitations: no limitations History of Present Illness HPI Narrative: Patient presents with complaints of runny nose, sore throat, sores to the nose. She reports that runny nose and sore throat began 3 or 4 days ago, 2 days ago she developed sores on the nose. She reports small blisters, painful to the touch. Pain is aggravated by blowing the nose. She has been taking Tylenol for her symptoms with moderate relief. Denies all injury and trauma. Voices no other concerns or complaints Related Data Allergies Allergy/AdvReac Type Severity Reaction Status Date / Time metronidazole [From Metrogel] Allergy Mild REDNESS, Verified 03/02/24 11:32 IRRITATION Review of Systems Review of Systems: All systems reviewed & are unremarkable except as noted in HPI and below Constitutional: Constitutional: Reports no additional constitutional complaints ENT: Reports system reviewed and no additional complaints, except as documented, Reports as per HPI, Reports nasal congestion, Reports nasal discharge, Reports nose pain, Reports post nasal drip and Reports sore throat Cardiovascular: Cardiovascular: Reports no additional cardiovascular complaints Respiratory: Respiratory: Reports no additional respiratory complaints Gastrointestinal: Gastrointestinal: Reports no additional gastrointestinal complaints [facility] Past Medical History Medical History Chlamydia Hemorrhoids Kidney stone Ovarian cyst Spontaneous Surgical History Surgical History H/O dilation and curettage x2 H/O laparoscopy History of endometrial ablation Hx of section Social History Social History Smoking packs per day: 1 Smoking cigarettes per day: 20.0 Years smoked: 23 Smoking pack-years: 23.00 Smoking status: Current every day smoker Tobacco type: cigarettes Second hand tobacco smoke exposure: Yes Alcohol intake: never Substance use: never Substance use type: does not use Living arrangements: with family Gender identity (if verbalized by the patient): Female Spiritual care concerns: No Exam Const: General: cooperative, no acute distress, alert and awake Orientation/consciousness: oriented to person, oriented to place and oriented to time HENMT: Head: normal to inspection Face/Nose/Sinus: Abnormal external nose present nasal erythema, nasal tenderness and other (Small viral blisters that extends from) Mouth: Yes moist mucous membranes Throat: posterior oropharynx abnormal erythema and postnasal drainage Resp: Effort & Inspection: normal respiratory effort and able to speak in complete sentences Auscultation: clear to auscultation bilaterally, no crackles, no rales, no rhonchi and no wheezes Cardio: Palpation: normal PMI Rate: regular rate Rhythm: regular rhythm Heart sounds: S1 normal heart sound present and S2 normal heart sound present Neuro: General: oriented to person, oriented to place and oriented to time Cranial nerves: Yes CN's II-XII intact bilaterally Psych: Appearance: grossly normal Thought process: Normal thought process present Insight: Good insight present (Psych) Judgement: Good judgement present (Psych) Course Course Level of Care: Express Care Visit Vital Signs Vital signs: Vital Signs Temperature 99.0 F 03/02/24 11:03 Pulse Rate 101 H 03/02/24 11:03 Respiratory Rate 16 03/02/24 11:03 Blood Pressure 125/81 03/02/24 11:03 Pulse Oximetry 99 03/02/24 11:03 Oxygen Delivery Room Air 03/02/24 11:03 Temperature 99.0 F 03/02/24 1
[2024-03-02 12:49] LABS: EDSTREPNEGPOS1 Negative
== END 2024-03-02 12:16 | disposition home or self-care (01) ==
PROVIDERS: Emergency Provider Nurse Practitioner Family; PCP Emergency Medicine
DX: B00.9 Herpesviral infection, unspecified (principal); J06.9 Acute upper respiratory infection, unspecified; F17.210 Nicotine dependence, cigarettes, uncomplicated
CPT/HCPCS: 87081; 87880; 99213; G0463

== ENCOUNTER 2024-06-05 10:27 | Emergency (ER) | payer OTHER, SELFPAY ==
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
[2024-06-05 10:34] VITALS: BP 127/76; PULSE 103; RESP 20; TEMP 36.4; O2SAT 98
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
[2024-06-05 17:03] LABS: EDSTREPNEGPOS1 Negative (Negative)
[2024-06-05 17:03] LABS: EDCOVIDSCREEN Negative (Negative); EDINFLUASCREEN Negative (Negative); EDINFLUBSCREEN Negative (Negative)
== END 2024-06-05 12:10 | disposition home or self-care (01) ==
PROVIDERS: Emergency Provider Nurse Practitioner; PCP Emergency Medicine
DX: J18.1 Lobar pneumonia, unspecified organism (principal); Z20.822 Contact with and (suspected) exposure to COVID-19; F17.210 Nicotine dependence, cigarettes, uncomplicated
CPT/HCPCS: 71046; 87081; 87426; 87804; 87880; 99213; G0463

== ENCOUNTER 2024-09-26 12:24 | Outpatient (CLI) | payer OTHER, SELFPAY ==
--- NOTE | ~2024-09-26 | MMUS_ITS ---
EXAMINATION: MM diagnostic horace BI w mercedes, US breast BI limited HISTORY: 39-year-old woman presents for diagnostic evaluation of a palpable abnormality within the up per outer right breast. In addition, this will be her baseline mammogram. TECHNIQUE: Craniocaudal and mediolateral oblique 3-D tomosynthesis images were obtained and synthetic 2-D images were generated. CAD analysis was submitted and interpreted. Additional spot compression of the areas of palpable concern were performed. Additional magnification view of the indeterminate microcalcifications were also performed. High resolution limited bilateral breast ultrasound was performed. COMPARISON: No prior images have been performed. Today's study will be interpreted as patient's baseline examination. BREAST PARENCHYMAL COMPOSITION: Not Dense. There are scattered areas of fibroglandular density. FINDINGS: MAMMOGRAPHIC FINDINGS: Spot compression view of the area of palpable concern demonstrated benign fibroglandular tissue. Magnification view of the indeterminate microcalcifications demonstrated diffuse calcifications with benign morphology. Within the left breast, three asymmetries are detected. Two are located within the upper outer left breast, with possibly a third in the lower inner left violetta ast (although this asymmetry is less convincing). These will be evaluated further with a focused ultr asound examination. Otherwise unremarkable parenchymal pattern within the remainder of the bilateral breast tissue, witho ut suspicious microcalcifications or architectural distortion. ULTRASOUND: Within the area of clinical concern on the right: Is a morphologically benign, nonpathologically enlarged lymph node measuring 7 mm in short axis dimen hannah, for which no further follow-up is needed. Within the areas of mammographic concern in the left breast: At the 1:00 position of the left breast approximately 11 cm from the nipple is an additional morpholo gically benign, nonpathologically enlarged lymph node measuring 11 mm in short axis dimension for whi ch no further follow-up is needed. At the 2:00 position of the left breast approximately 8 cm from the nipple is a well-circumscribed re niform shaped focus of decreased echogenicity measuring 4.4 x 6.1 x 2.3 mm consistent with an intrama mmary lymph node for which no further follow-up is needed. At the 3:00 position of the left breast approximately 6 cm from the nipple is a well-circumscribed re niform shaped focus of decreased echogenicity measuring 7.4 x 7.7 x 2.3 mm, consistent with an intram ammary lymph node for which no further follow-up is needed. Sonographic evaluation of the lower inner left breast demonstrates benign fibroglandular elements wit hout a cystic or solid lesion of concern. IMPRESSION: No mammographic/tomographic or sonographic evidence to suggest the presence of malignancy. Yearly mammography is recommended. BI-RADS Category 2: Benign finding(s). Reviewed, dictated and finalized at location A. IMPRESSION: No mammographic/tomographic or sonographic evidence to suggest the presence of malignancy. Yearly mammography is recommended. BI-RADS Category 2: Benign finding(s).
--- OUTSIDE RECORDS SUMMARY | 2024-09-26 14:20 | XMS_ITS | Clinical Summary ---
Author Organization [facility] Address [address] [place] [address] Care Team Providers Care Film Spooler Name Role Phone Pastor Magana MD Primary Care Provider [phone] Source Comments [facility],non-owned Affiliates and Associated Physician Practices is amultiple site organization consisting of ambulatory clinics and hospital sitesin [place], [place], [place] and [place]. This disclosure is being madepursuant to the Care Everywhere program and may not contain all information available regarding this patient. Last updated 18.[facility] Allergies No known active allergies Medications Be aware that medications may not be up to date on this document. Always verify current medications with the patient. No known medications Active Problems No known active problems Family History Medical History Relation Name Comments Diabetes - Type 2 Mother Relation Name Status Comments Mother Social History Tobacco Use Types Packs/Day Years Used Date Smoking Tobacco: Every Day Cigarettes 1 15 Smokeless Tobacco: Never Sex and Gender Information Value Date Recorded Sex Assigned at Not on file Gender Identity Not on file Sexual Orientation Not on file Last Filed Vital Signs Vital Sign Reading Time Taken Comments Blood Pressure 128/86 11/06/2018 12:34 PM CDT Pulse 102 11/06/2018 12:34 PM CDT Temperature 36.8 C (98.2 F) 11/06/2018 12:34 PM CDT Respiratory Rate 16 11/06/2018 12:34 PM CDT Oxygen Saturation 97% 11/06/2018 12:34 PM CDT Inhaled Oxygen Concentration - - Weight 95.3 kg (210 lb) 11/06/2018 12:34 PM CDT Height 162.6 cm (5' 4 ) 11/06/2018 12:34 PM CDT Body Mass Index 36.05 11/06/2018 12:34 PM CDT Plan of Treatment Health Maintenance Due Date Last Done Comments LIPID TESTING 1983 MAMMOGRAM 1983 PAP SMEAR 1983 HIV SCREENING 1998 HEPATITIS C SCREENING 02/05/2001 DTAP/TDAP/TD VACCINES (1 - Tdap) 2002 HEPATITIS B VACCINE (1 of 3 - 19+ 3-dose series) 2002 COVID-19 VACCINE (1 - 2023-2 5 season) 2024 INFLUENZA VACCINE (#1) 2024 DEPRESSION SCREENING 07/05/2024 ZOSTER VACCINE (1 of 2) 2033 HIB VACCINE Aged Out No longer eligi ble based on patient's age to complete this topic HPV VACCINE Aged Out No longer eligi ble based on patient's age to complete this topic MENINGOCOCCAL (Group B) VACC INE SHARED DECISION-MAKING Aged Out No longer eligibl e based on patient's age to complete this topic MENINGOCOCCAL GROUPS A/C/Y/W VACCINE Aged Out No longer eligible b ased on patient's age to complete this topic PNEUMOCOCCAL VACCINE Aged Out No long er eligible based on patient's age to complete this topic Advance Directives Documents on File Type Date Recorded Patient Manager Intranet Expl anation Adv Directive/Living Will/POA 11/12/2016 Care Teams Film Spooler Relationship Specialty Start Date End Date Pastor Magana MD [address] [id number] PCP - General Internal Medicine 11/12/16
--- OUTSIDE RECORDS SUMMARY | 2024-09-26 14:20 | XMS_ITS | Clinical Summary ---
Author Organization [facility] Address [address] [place] [id number] Care Team Providers Care Distribution Specialist Name Role Phone Unavailable Primary Care Provider Unavailabl e Social History Tobacco Use Types Packs/Day Years Used Date Smoking Tobacco: Never Assessed Comments Unknown Sex and Gender Information Value Date Recorded Sex Assigned at Not on file Legal Sex Female 4:03 PM CDT Gender Identity Not on file Sexual Orientation Not on file Plan of Treatment Health Maintenance Due Date Last Done Comments Cervical Cancer Screening Pa p Smear (Age 30 to 64) Every 3 Years 1983 Annual Physical 1986 Hepatitis C 2001 DTaP, Tdap and Td Vaccines ( 1 - Tdap) 2002 Hepatitis B Vaccines (1 of 3 - 19+ 3-dose series) 2002 Cervical Cancer Screening Pa p with HPV Testing (Age 30 to 64) Every 5 Years 2013 Cervical Cancer Screening with HPV 2013 Mammogram Screening 2023 COVID-19 Vaccine (2023-2 5 season) 2024 Influenza Adult (#1) 2024 HPV Vaccines Aged Out No longer eligi ble based on patient's age to complete this topic Meningococcal B Vaccine Aged Out No l onger eligible based on patient's age to complete this topic Meningococcal Vaccine Aged Out No shakira sara eligible based on patient's age to complete this topic Pneumococcal Vaccine: Pediat rics (0 to 5 Years) and At-Risk Patients (6 to 64 Years) Aged Out No longer eligible b ased on patient's age to complete this topic RSV Immunizations Under 20 Months Aged Out No longer eligible based on patient's age to complete this topic
--- OUTSIDE RECORDS SUMMARY | 2024-09-26 14:20 | XMS_ITS | Referral Summary ---
Author Organization [facility] Address [address] [place] [address] Care Team Providers Care Hot Header Operator Name Role Phone Pastor Magana MD Primary Care Provide r Pastor Magana MD Unavailable [phone] Allergies No known active allergies Medications fluticasone propionate (Flonase Allergy Relief) 50 mcg/actuation nasal spray Administer 1 spray into each nostril 2 (two) times a day 16 g 3 1 Active armodafiniL (NUVIGIL) 150 mg tablet Take 1 tablet (150 mg total) by mouth daily 30 tablet 3 1 Active Active Problems Problem Noted Date Diagnosed Date Obstructive sleep apnea 03/12/2021 Nicotine dependence 03/12/2021 Restless legs 03/12/2021 Fatigue 03/12/2021 Non-seasonal allergic rhinitis due to pollen 02/2021 Hypersomnia 03/12/2021 Psychophysiological insomnia 03/12/2021 Anxiety 03/12/2021 Overweight 03/12/2021 Shortness of breath 03/12/2021 Social History Tobacco Use Types Packs/Day Years Used Date Smoking Tobacco: Every Day Cigarettes Smokeless Tobacco: Never AUDIT-C Answer Date Recorded Q1: How often do you have a drink containing alc ohol? Never 03/12/2021 Average Number of Drinks Not on file 021 Q3: How often do you have si x or more drinks on one occasion? Never 03/12/2021 Personal Safety Answer Date Recorded Getting School Help Needed Not on file 09/03 Comments Unknown Sex and Gender Information Value Date Recorded Sex Assigned at Not on file Legal Sex Female 4:10 PM CDT Gender Identity Not on file Sexual Orientation Not on file Last Filed Vital Signs Vital Sign Reading Time Taken Comments Blood Pressure 112/82 03/12/2021 9:32 AM CDT Pulse 94 03/12/2021 9:32 AM CDT Temperature 36.5 C (97.7 F) 03/12/2021 9:32 AM CDT Respiratory Rate 18 03/12/2021 9:32 AM CDT Oxygen Saturation 97% 03/12/2021 9:32 AM CDT Inhaled Oxygen Concentration - - Weight 90.7 kg (200 lb) 03/12/2021 9:32 AM CDT Height 162.6 cm (5' 4 ) 03/12/2021 9:32 AM CDT Body Mass Index 34.33 03/12/2021 9:32 AM CDT Plan of Treatment Not on file Insurance [employer] ANTHEM ACCESS CHOICE Member Subscriber Plan / Payer (Formerly [facility], 1928–1983tive 04/04/2018-Present) Name:Lyly Pérez Relation to Subscriber:Self Name:Lyly Pérez Payer ID:[id number] (NAIC) Type:[employer] Address: [place] [address] ANTHEM ACCESS CHOICE Member Subscriber Plan / Payer (Formerly [facility], 1928–1983tive 04/04/2018-Present) Name:Lyly Pérez Relation to Subscriber:Self Name:Lyly Pérez Payer ID:[id number] (NAIC) Type:[employer] Address: [address] [place] [address] Care Teams Hot Header Operator Relationship Specialty Start Date End Date Pastor Magana MD [address] [place] [address] PCP - General Emergency Medicine 05/08/21 Pastor Magana MD [address] [place] [address] Emergency Medicine 05/08/21
--- OUTSIDE RECORDS SUMMARY | 2024-09-26 14:20 | XMS_ITS | Clinical Summary ---
Author Organization [facility] Address [address] [place] [address] Care Team Providers Care Emergency Room Physician Assistant Name Role Phone Pastor Magana MD Primary Care Provide r Pastor Magana MD Unavailable [phone] Allergies No known active allergies Medications fluticasone [...] 03/12/2021 Overweight 03/12/2021 Shortness of breath 03/12/2021 Surgical History Surgery Date Site/Laterality Comments HYSTERECTOMY TUBAL LIGATION Social History Tobacco Use Types Packs/Day Years [...] on file Sexual Orientation Not on file Obstetrics History Last Filed Vital Signs Vital Sign Reading [...] Plan of Treatment Not on file Insurance [employer] ANTHEM ACCESS CHOICE ANTHEM ACCESS CHOICE ANTHEM ACCESS CHOICE Care Teams Emergency Room Physician Assistant Relationship Specialty Start Date End Date Pastor Magana MD [address] [place] [address] PCP - General Emergency Medicine 05/08/21 Pastor Magana MD [address] [place] [address] Emergency Medicine 05/08/21
== END 2024-09-26 12:25 | disposition home or self-care (01) ==
PROVIDERS: PCP Emergency Medicine; Visit Provider Obstetrics & Gynecology
DX: R92.8 Other abnormal and inconclusive findings on diagnostic imaging of breast (principal); N63.21 Unspecified lump in the left breast, upper outer quadrant; N63.25 Unspecified lump in the left breast, overlapping quadrants; N63.10 Unspecified lump in the right breast, unspecified quadrant; N64.4 Mastodynia
CPT/HCPCS: 76642; 77062; 77066; G0279

== ENCOUNTER 2025-03-06 14:37 | Emergency (ER) | payer OTHER, SELFPAY ==
[2025-03-06 14:51] VITALS: BP 131/79; PULSE 96; RESP 16; TEMP 36.9; O2SAT 98
--- NOTE | 2025-03-06 15:38 | ED.URI ---
HPI - URI/Sore Throat General Chief Complaint: Upper Respiratory Infection Stated Complaint: Cough Time Seen by Provider: 03/06/25 15:38 Source: patient and RN notes reviewed Mode of arrival: ambulatory Limitations: no limitations History of Present Illness HPI Narrative: 40 y/o female presented for c/o nasal congestion, sore throat, cough and subjective fever. Denies sob, wheezing, n/v/d. Onset 2 days. Took left over antibiotics. Current smoker. MD elicited complaint: cough Related Data Allergies Allergy/AdvReac Type Severity Reaction Status Date / Time metronidazole (From Metrogel) Allergy Mild REDNESS, Verified 03/06/25 14:44 IRRITATION Review of Systems Review of Systems: CONSTITUTIONAL: Endorses malaise, body aches, chills, sweats, fever EYES: Denies visual changes, redness, or discharge ENT: Reports rhinorrhea, congestion, sinus pain, otalgia, sore throat CARDIOVASCULAR: Denies chest pain, palpitations, edema RESPIRATORY: Reports cough, post nasal drainage. Denies dyspnea GASTROINTESTINAL: Denies abdominal pain, nausea, vomiting, diarrhea SKIN: Denies rash or itching NEUROLOGIC: Denies headache PMFSH Past Medical History Medical History Sore throat Pain with urination Cough Acute non-recurrent sphenoidal sinusitis Kidney stone Ovarian cyst Chlamydia Spontaneous Hemorrhoids Surgical History Surgical History History of hysterectomy (~2022) History of endometrial ablation H/O laparoscopy Hx of section H/O dilation and curettage x2 Family History Family History Mother Diabetes mellitus Hypertension Father Depression Anxiety Grandparent Heart disease Hypertension Cerebrovascular accident Thyroid disorder Other Breast cancer Carcinoma of colon Liver cancer Social History Social History Smoking packs per day: 1 Smoking cigarettes per day: 20.0 Years smoked: 23 Smoking pack-years: 23.00 Smoking status: Current every day smoker Tobacco type: cigarettes Second hand tobacco smoke exposure: Yes Alcohol intake: never Substance use: never Substance use type: does not use Do You Feel Safe in your Home?: Yes Lack of Transportation: No Lack of Food: Never True Current Housing: I Have Housing Concerned About Future Housing: No Difficulty Paying Gas/Electric Bills: No Difficulty Paying for Meds: No Currently Unemployed: No Education: Associate Degree Difficulty w/ Childcare or Family Care: No Living arrangements: with family Gender identity (if verbalized by the patient): Female Spiritual care concerns: No Exam Narrative: GENERAL: mildly Ill-appearing, nontoxic no acute distress. EYES: conjunctivae clear ENT: Mucous membranes moist. nasal congestion noted. TMs pearly mckinney with dull light reflex bilaterally; no tragal tenderness. Oropharynx erythematous without lesions or exudate,Tonsils 1+ no drooling, no hoarseness, no trismus, uvula midline. No tripod positioning, muffled voice, soft palate or pharyngeal wall bulging NECK: Supple. No lymphadenopathy CHEST: Clear to auscultation, breath sounds equal. No wheezing, rhonchi, rales, or stridor. No respiratory distress, speaks in full sentences. HEART: Regular rate and rhythm. No murmur heard. SKIN: Warm, dry, no rash. NEURO: Alert and oriented x3. PSYCH: Normal mood and affect Course Course Emergency Course: Patient is aware of diagnosis, understands and agrees to treatment plan. Anticipatory guidance given. Patient agrees to follow-up as directed and is aware of reasons to seek care at the emergency department. Portions of this record may have been created with voice recognition software Level of Care: Express Care Visit Vital Signs Vital signs: Vital Signs Temperature 98.5 F 03/06/25 14:51 Pulse Rate 96 03/06/25 14:51 Respiratory Rate 16 03/06/25 14:51 Blood Pressure 131/79 03/06/25 14:51 Pulse Oximetry 98 03/06/25 14:51 Oxygen Delivery Room Air 03/06/25 14:51 Temperature 98.5 F 03/06/25 14:51 Pulse Rate 96 03/06/25 14:51 Respiratory Rate 16 03/06/25 14:51 Blood Pressure 131/79 03/06/25 14:51 Pulse Oximetry 98 03/06/25 14:51 Oxygen Delivery Room Air 03/06/25 14:51 reviewed MDM - URI/Sore Throat MDM Narrative Medical decision making narrative: Discussed physical exam findings Consistent with bronchitis. Negative flu, COVID, strep. Will culture strep. Reviewed prescriptions. Advised supportive measures and signs/symptoms to go to the ER. Pt is appropriate for outpt treatment and f/u. Differential Diagnosis Differential diagnosis: Likely upper respiratory infection, sinusitis and viral infection Discharge Plan Discharge Clinical Impression: Bronchitis Patient Disposition: Home Condition: Stable Instructions: Antibiotic Form, Acute Bronchitis (ED) Additional Instructions: Your rapid covid/flu test was negative today. It may be too early to detect the virus, therefore we recommend retesting at home in 1-2 days Continue to follow general precautions: frequent handwashing, wear a mask, isolate/social distance, and avoid crowds if you have a fever. You must be fever free for 24 hours without the use of fever reducing medication (Tylenol/ibuprofen) before returning to work/school/crowds. Rapid strep swab was negative today You will be notified in a few days if the culture comes back positive for strep, and appropriate antibiotics will be called in at that time. if symptoms are due to a viral illness, it is not treated with antibiotics. Viral symptoms can be present for up to 10-14 days. Take the steroid as directed benzonatate as needed for cough albuterol inhaler as needed for shortness of breath/wheezing Recommendations: Flonase spray and Zyrtec for sinus congestion Cough syrup may cause drowsiness; avoid driving or take it at night time. Tylenol every 8 hours as needed for pain/fever Soft foods, cool liquids, warm tea. Gargle with warm saltwater twice a day. Chloraseptic spray and throat lozenges. Rest and stay hydrated. --Follow up with your PCP --Go to the ER immediately if you cannot swallow your saliva, trouble breathing/wheezing, throat swelling, pain is persistent and severe Patient Language: Azerbaijani Prescriptions: New benzonatate 200 mg capsule 200 mg PO TID PRN (Reason: cough) Qty: 20 0RF methylprednisolone [Medrol (Robert)] 4 mg tablets,dose pack See Rx Instructions .ROUTE .COMPLEX Qty: 21 0RF Rx Instructions: orally per package directions albuterol sulfate 90 mcg/actuation HFA aerosol inhaler 2 inh inhalation QID PRN (Reason: shortness of breath or wheezing) Qty: 8.5 0RF Follow-up/Referrals: Pastor Magana MD [Primary Care Provider, Internal Medicine] Stand Alone Forms: Work/School Release IP Time of Disposition: 15:48
[2025-03-06 15:41] LABS: EDCOVIDSCREEN Negative (Negative)
[2025-03-06 15:41] LABS: EDINFLUASCREEN Negative (Negative); EDINFLUBSCREEN Negative (Negative); EDSTREPNEGPOS1 Negative (Negative)
== END 2025-03-06 15:55 | disposition home or self-care (01) ==
PROVIDERS: Emergency Provider Nurse Practitioner Family; PCP Emergency Medicine
DX: J40 Bronchitis, not specified as acute or chronic (principal); Z20.822 Contact with and (suspected) exposure to COVID-19; F17.210 Nicotine dependence, cigarettes, uncomplicated
CPT/HCPCS: 87081; 87426; 87804; 87880; 99213; G0463